=== PATIENT | female | born 1965 | race African-American/Black ===

== ENCOUNTER 2018-12-31 19:16 | Observation (INO) ==
[2018-12-31] MEDS ORDERED: FUROSEMIDE 100 MG/10 ML VIAL IV STA (19:31)
[2018-12-31] MEDS ORDERED: ONDANSETRON 4 MG/2 ML VIAL IV STA (19:31)
[2018-12-31] MEDS ORDERED: cefTRIAXone 1,000 MG in SODIUM CHLORIDE 0.9% 100 ML IV STA (19:31)
[2018-12-31] MEDS ORDERED: methylPREDNISolone SOD SUC 125 MG/2 ML VIAL IV STA (19:31)
[2018-12-31] MEDS ORDERED: ALBUTEROL 2.5 MG/3 ML NEB RESP TX SCH (20:00)
[2018-12-31 20:55] LABS: Basophils # 0.1 10*3/uL (0.0-0.2); Basophils % 0.5 % (0.0-0.8); Eosinophils % 0.4 % (0.00-10.9); Hematocrit 41.1 VOL% (35.7-47.0); Hemoglobin 12.7 GM/DL (12.0-16.0); Immature Granulocytes Absolute 0.11 #; Lymphocytes # 1.8 10*3/uL (1.4-4.0); Lymphocytes % 17.1 % (21.3-54.2); Mean Corpuscular HGB Conc 30.9 GM/DL (32-36); Mean Corpuscular Hemoglobin 28 PG (27-34); Mean Corpuscular Volume 90.9 FL (87-102); Mean Platelet Volume 10.2 FL (9.6-12.0); Monocytes # 0.5 10*3/uL (0.11-0.8); Monocytes % 4.7 % (1.7-12.7); Neutrophils % 76.3 % (38.7-73.9); Platelet Count 278 T/CUMM (130-400); Red Blood Count 4.52 MC/CUMM (3.8-5.5); Red Cell Distribution Width 15.6 % (9.3-17.3); White Blood Count 10.5 T/CUMM (4-12)
[2018-12-31 21:14] LABS: Alanine Aminotransferase 24 U/L (13-56); Albumin 3.9 G/DL (3.4-5.0); Alkaline Phosphatase 111 U/L (45-117); Aspartate Amino Transferase 21 U/L (0-37); Bilirubin,Total < 0.39 MG/DL (0.2-1.0); Blood Urea Nitrogen 13 MG/DL (7-18); Calcium 8.8 MG/DL (8.5-10.1); Glucose 111 MG/DL (74-106); Osmolality,Calculated 281.3 MOS/KG (273-304); Potassium 4.3 MMOL/L (3.5-5.1); Sodium 141 MMOL/L (136-145); Total Protein 7.7 G/DL (6.4-8.3)
[2018-12-31 21:18] LABS: INR 0.9; PT Patient Result 10.1 SECS
[2018-12-31 21:37] LABS: Apearance,Urine CLEAR (Clear); Bilirubin,Urine Negative (Negative); Blood, Urine Small mg/dL (Negative); Glucose,Urine (UA) Negative (Negative); Ketones,Urine Negative (Negative); Mucus,Urine Occasional /LPF (Occasional); Nitrite,Urine Negative (Negative); Protein,Urine Negative; RBC,Urine 1 /HPF (0-4); Squamous Epithelial Cell,Urine Occasional /HPF (0-10); Urine Color Straw (Yellow); Urine Specific Gravity 1.008 (1.001-1.035); Urine Urobilinogen < 2.0 EU/DL (0.2-1.0); WBC,Urine <1 /HPF (0-6)
[2018-12-31 21:41] LABS: Barbiturates Screen,Urine Negative (Negative); Benzodiazepines Screen,Urine Negative (Negative); Cannabinoid Screen,Urine Negative (Negative); Opiate Screen,Urine Negative (Negative); Phencyclidine Screen,Urine Negative (Negative)
[2018-12-31 21:46] LABS: ABG Base Excess -5.5 MMOL/L (-2.5-2.5); ABG HCO3 19.8 MMOL/L (20-26); ABG Oxygen Saturation 92.1 % (95-100); ABG PCO2 36.9 MM HG (35-48); ABG PH 7.336 (7.35-7.45); ABG PO2 70.2 MM HG (80-95); ABG TCO2 17.4 MMOL/L (23-27); Allen Test Positive; Pt O2 Delivery Device Room Air
[2018-12-31] MEDS ORDERED: diphenhydrAMINE CAP 25 MG CAPSULE PO PRN (21:53)
[2018-12-31] MEDS ORDERED: ACETAMINOPHEN 325 MG TABLET PO PRN (21:53)
[2018-12-31] MEDS ORDERED: MORPHINE 4 MG/1 ML VIAL IV PRN (21:53)
[2018-12-31] MEDS ORDERED: BISACODYL 5 MG TABLET PO PRN (21:53)
[2018-12-31] MEDS ORDERED: ONDANSETRON 4 MG/2 ML VIAL IV PRN (21:53)
[2018-12-31] MEDS ORDERED: guaiFENesin/DM ER 600-30 MG TABLET PO PRN (21:53)
[2018-12-31] MEDS ORDERED: ALBUTEROL 2.5 MG/3 ML NEB RESP TX PRN (21:53)
[2018-12-31] MEDS ORDERED: ZALEPLON 5 MG CAPSULE PO PRN (21:53)
[2018-12-31] MEDS ORDERED: NICOTINE 21 MG/24 HR PATCH TRANSDERM PRN (21:53)
[2019-01-01] MEDS: ALBUTEROL/IPRATROPIUM 3 ML NEB RESP TX SCH ×3 (00:16→13:02)
[2019-01-01 02:31] LABS: Basophils # 0.1 10*3/uL (0.0-0.2); Basophils % 0.5 % (0.0-0.8); Hematocrit 39.1 VOL% (35.7-47.0); Immature Granulocytes % 1.6 %; Immature Granulocytes Absolute 0.17 #; Lymphocytes # 0.4 10*3/uL (1.4-4.0); Lymphocytes % 3.8 % (21.3-54.2); Mean Corpuscular HGB Conc 30.7 GM/DL (32-36); Mean Corpuscular Hemoglobin 28 PG (27-34); Mean Corpuscular Volume 89.9 FL (87-102); Mean Platelet Volume 10.6 FL (9.6-12.0); Monocytes # 0.1 10*3/uL (0.11-0.8); Monocytes % 0.7 % (1.7-12.7); Neutrophils # 10.1 10*3/uL (1.4-7.4); Neutrophils % 93.4 % (38.7-73.9); Platelet Count 277 T/CUMM (130-400); Red Blood Count 4.35 MC/CUMM (3.8-5.5); Red Cell Distribution Width 15.4 % (9.3-17.3); White Blood Count 10.8 T/CUMM (4-12)
[2019-01-01 04:49] LABS: Band Neutrophils 2 % (0-10); Lymphocytes 5 % (20-55); Segmented Neutrophils 92 % (50-85); Total Cells Counted 100
[2019-01-01 04:50] LABS: Anisocytosis 1+
[2019-01-01 04:51] LABS: Platelet Estimate Adequate
[2019-01-01] MEDS ORDERED: PANTOPRAZOLE 40 MG TABLET PO SCH (09:00)
[2019-01-01] MEDS ORDERED: methylPREDNISolone SOD SUC 40 MG/1 ML VIAL IV SCH (09:00)
[2019-01-01 12:49] VITALS: BP 149/86
[2019-01-01] MEDS ORDERED: BENZONATATE 100 MG CAPSULE PO PRN (13:06)
[2019-01-01] MEDS ORDERED: buPROPion SR 100 MG TABLET PO SCH (21:00)
[2019-01-01] MEDS ORDERED: cefTRIAXone 1,000 MG in SYRINGE 1 EACH IV SCH (21:00)
[2019-01-02] MEDS ORDERED: NICOTINE 21 MG/24 HR PATCH TRANSDERM SCH (09:00)
== END 2019-01-01 14:43 | disposition home or self-care (01) ==
LOC: EDBD → EDUNIT# → N.ED 19:16 → N.EDINP 19:16 → N.4E 01-01 00:10
PROVIDERS: ADMIT Hospitalist; ATTEND Hospitalist

== ENCOUNTER 2020-11-20 14:12 | Observation (INO) ==
[2020-11-20] MEDS ORDERED: ALBUTEROL 2.5 MG/3 ML NEB RESP TX STA (14:31)
[2020-11-20] MEDS ORDERED: methylPREDNISolone SOD SUC 125 MG/2 ML VIAL IV STA (14:31)
[2020-11-20 15:16] LABS: Basophils # 0.1 10*3/uL (0.0-0.2); Basophils % 0.8 % (0.0-0.8); Eosinophils # 0.4 10*3/uL (0.0-0.87); Eosinophils % 6.3 % (0.00-10.9); Hematocrit 38.6 VOL% (35.7-47.0); Hemoglobin 12.2 GM/DL (12.0-16.0); Immature Granulocytes % 0.6 %; Immature Granulocytes Absolute 0.04 #; Lymphocytes # 1.5 10*3/uL (1.4-4.0); Lymphocytes % 24.1 % (21.3-54.2); Mean Corpuscular HGB Conc 31.6 GM/DL (32-36); Mean Corpuscular Volume 88.9 FL (87-102); Mean Platelet Volume 10.9 FL (9.6-12.0); Monocytes % 8.3 % (1.7-12.7); Neutrophils % 59.9 % (38.7-73.9); Platelet Count 194 T/CUMM (130-400); Red Blood Count 4.34 MC/CUMM (3.8-5.5); Red Cell Distribution Width 15.3 % (9.3-17.3); White Blood Count 6.3 T/CUMM (4-12)
[2020-11-20 15:32] LABS: Calcium 9.1 MG/DL (8.5-10.1); Osmolality,Calculated 274.5 MOS/KG (273-304); Potassium 3.4 MMOL/L (3.5-5.1)
[2020-11-20 16:06] LABS: ABG Base Excess 1.4 MMOL/L (-2.5-2.5); ABG HCO3 25.6 MMOL/L (20-26); ABG Oxygen Saturation 93.6 % (95-100); ABG PCO2 39.5 MM HG (35-48); ABG PH 7.423 (7.35-7.45); ABG PO2 68.8 MM HG (80-95); ABG TCO2 22.7 MMOL/L (23-27)
[2020-11-20] MEDS ORDERED: GLUCAGON 1 MG VIAL IM PRN (16:53)
[2020-11-20] MEDS ORDERED: hydrALAZINE 20 MG/1 ML VIAL IV PRN (16:53)
[2020-11-20] MEDS ORDERED: ACETAMINOPHEN 325 MG TABLET PO PRN (16:53)
[2020-11-20] MEDS ORDERED: ONDANSETRON 4 MG/2 ML VIAL IV PRN (16:53)
[2020-11-20] MEDS ORDERED: DEXTROSE 50% 25 GM/50 ML VIAL IV PRN (16:53)
[2020-11-20] MEDS ORDERED: traMADol 50 MG TABLET PO PRN (16:55)
[2020-11-20] MEDS ORDERED: POTASSIUM CHLORIDE 20 MEQ TABLET PO ONE (17:09)
[2020-11-20 17:27] LABS: Risk Ratio 2.2; Thyroid Stimulating Hormone 0.737 uIU/ml (0.358-3.74); VLDL CHOLESTEROL 24.4 MG/DL
[2020-11-20] MEDS ORDERED: ENOXAPARIN 40 MG/0.4 ML SYRINGE SUBCUT SCH (18:00)
[2020-11-20] MEDS: ALBUTEROL 2.5 MG/3 ML NEB RESP TX SCH (19:49)
[2020-11-20] MEDS ORDERED: ROSUVASTATIN 20 MG TABLET PO SCH (21:00)
[2020-11-20] MEDS ORDERED: QUEtiapine 25 MG TABLET PO SCH (21:00)
[2020-11-20] MEDS: INSULIN LISPRO 100 UNIT/ML SUBCUT SCH (21:03)
[2020-11-20] MEDS: FLUTICASONE/SALMETEROL 100-50 DISKUS 14 DOSE INH SCH (21:03)
[2020-11-20] MEDS: FLUoxetine 20 MG CAPSULE PO SCH (21:04)
[2020-11-21] MEDS: ALBUTEROL 2.5 MG/3 ML NEB RESP TX SCH ×3 (00:30→13:42)
[2020-11-21 06:52] LABS: Basophils % 0.1 % (0.0-0.8); Hematocrit 37.9 VOL% (35.7-47.0); Hemoglobin 12.4 GM/DL (12.0-16.0); Immature Granulocytes % 1.5 %; Immature Granulocytes Absolute 0.11 #; Lymphocytes # 0.8 10*3/uL (1.4-4.0); Lymphocytes % 10.9 % (21.3-54.2); Mean Corpuscular HGB Conc 32.7 GM/DL (32-36); Mean Corpuscular Volume 87.7 FL (87-102); Mean Platelet Volume 11.4 FL (9.6-12.0); Monocytes % 1.8 % (1.7-12.7); Neutrophils % 85.7 % (38.7-73.9); Platelet Count 188 T/CUMM (130-400); Red Blood Count 4.32 MC/CUMM (3.8-5.5); Red Cell Distribution Width 15.3 % (9.3-17.3); White Blood Count 7.3 T/CUMM (4-12)
[2020-11-21] MEDS ORDERED: LEVOTHYROXINE 75 MCG TABLET PO SCH (07:00)
[2020-11-21 07:17] LABS: Calcium 9.4 MG/DL (8.5-10.1); Osmolality,Calculated 280.7 MOS/KG (273-304); Potassium 4.3 MMOL/L (3.5-5.1)
[2020-11-21] MEDS ORDERED: MAGNESIUM SULF RIDER 2 GM in PREMIX 1 EACH IV PRN (08:01)
[2020-11-21] MEDS ORDERED: MAGNESIUM SULF RIDER 4 GM in PREMIX 1 EACH IV PRN (08:01)
[2020-11-21] MEDS ORDERED: metFORMIN 500 MG TABLET PO SCH (09:00)
[2020-11-21] MEDS ORDERED: LISINOPRIL/HCTZ 20-12.5 MG TABLET PO SCH (09:00)
[2020-11-21] MEDS ORDERED: INFLUENZA VIRUS VACCINE 0.5 ML SYRINGE IM ONE (09:00)
[2020-11-21] MEDS ORDERED: PNEUMOCOCCAL VACCINE (23 VALENT) 0.5 ML VIAL IM ONE (09:00)
[2020-11-21] MEDS ORDERED: amLODIPine 10 MG TABLET PO SCH (09:00)
[2020-11-21] MEDS ORDERED: methylPREDNISolone SOD SUC 40 MG/1 ML VIAL IV SCH (09:00)
[2020-11-21] MEDS: FLUoxetine 20 MG CAPSULE PO SCH (09:49)
[2020-11-21] MEDS: FLUTICASONE/SALMETEROL 100-50 DISKUS 14 DOSE INH SCH (11:58)
[2020-11-21] MEDS: INSULIN LISPRO 100 UNIT/ML SUBCUT SCH ×2 (11:58)
[2020-11-21 12:45] VITALS: BP 128/91
== END 2020-11-21 14:00 | disposition home or self-care (01) ==
LOC: EDUNIT# → EDBD → N.ED 14:12 → N.EDINP 14:12 → N.3E 18:05
PROVIDERS: ADMIT Phlebology; ATTEND Phlebology

== ENCOUNTER 2021-04-22 13:23 | Inpatient (IN) ==
[2021-04-22] MEDS ORDERED: SODIUM CHLORIDE 0.9% 1,000 ML IV STA ×2 (13:59→15:03)
[2021-04-22 14:52] LABS: Basophils % 0.7 % (0.0-0.8); Hematocrit 45.8 VOL% (35.7-47.0); Hemoglobin 14.7 GM/DL (12.0-16.0); Immature Granulocytes % 0.4 %; Immature Granulocytes Absolute 0.01 #; Lymphocytes # 0.7 10*3/uL (1.4-4.0); Lymphocytes % 25.2 % (21.3-54.2); Mean Corpuscular HGB Conc 32.1 GM/DL (32-36); Mean Corpuscular Volume 87.2 FL (87-102); Mean Platelet Volume 12.2 FL (9.6-12.0); Monocytes % 10.7 % (1.7-12.7); Platelet Count 124 T/CUMM (130-400); Red Blood Count 5.25 MC/CUMM (3.8-5.5); Red Cell Distribution Width 16.6 % (9.3-17.3); White Blood Count 2.7 T/CUMM (4-12)
[2021-04-22 15:08] LABS: Alanine Aminotransferase 96 U/L (13-56); Albumin 3.5 G/DL (3.4-5.0); Alkaline Phosphatase 96 U/L (45-117); Aspartate Amino Transferase 146 U/L (0-37); Bilirubin,Total < 0.39 MG/DL (0.20-1.00); Blood Urea Nitrogen 45 MG/DL (7-18); Calcium 8.6 MG/DL (8.5-10.1); Carbon Dioxide 20 MMOL/L (21-32); Estimated Glom Filtration Rate 20 ML/MIN; Glucose 134 MG/DL (74-106); Osmolality,Calculated 273.8 MOS/KG (273-304); Potassium 3.5 MMOL/L (3.5-5.1); Sodium 130 MMOL/L (136-145); Total Protein 7.2 G/DL (6.4-8.2)
[2021-04-22] MEDS ORDERED: cefTRIAXone 1,000 MG in SODIUM CHLORIDE 0.9% 100 ML IV STA (15:39)
[2021-04-22 16:21] LABS: Lymphocytes 25 % (20-55); Segmented Neutrophils 69 % (50-85); Total Cells Counted 100
[2021-04-22] MEDS ORDERED: GLUCAGON 1 MG VIAL IM PRN ×2 (16:28)
[2021-04-22] MEDS ORDERED: ONDANSETRON 4 MG/2 ML VIAL IV PRN (16:28)
[2021-04-22] MEDS ORDERED: DEXTROSE 50% 25 GM/50 ML VIAL IV PRN (16:28)
[2021-04-22] MEDS: INSULIN LISPRO 100 UNIT/ML SUBCUT SCH ×2 (16:30→21:55)
[2021-04-22] MEDS ORDERED: AZITHROMYCIN INJ 500 MG in SODIUM CHLORIDE 0.9% 250 ML IV ONE ×2 (16:32→19:00)
[2021-04-22] MEDS ORDERED: NICOTINE 7 MG/24 HR PATCH TRANSDERM PRN (16:39)
[2021-04-22] MEDS ORDERED: NOREPINEPHRINE 4 MG/4 ML VIAL IV ONE (17:56)
[2021-04-22] MEDS: NOREPINEPHRINE 8 MG in SODIUM CHLORIDE 0.9% 242 ML IV PRN (18:00)
[2021-04-22] MEDS: HEPARIN 5,000 UNIT/1 ML VIAL SUBCUT SCH (18:36)
[2021-04-22] MEDS: SODIUM CHLORIDE 0.9% 1,000 ML IV SCH (19:00)
[2021-04-22 19:21] LABS: ABG Base Excess -6.8 MMOL/L (-2.5-2.5); ABG Oxygen Saturation 96.6 % (95-100); ABG PCO2 29.7 MM HG (35-48); ABG PH 7.371 (7.35-7.45); ABG PO2 91.1 MM HG (80-95); ABG TCO2 14.8 MMOL/L (23-27)
[2021-04-22] MEDS ORDERED: ALBUMIN 25% 12.5 GM/50 ML VIAL IV ONE (20:10)
[2021-04-22] MEDS ORDERED: SODIUM BICARBONATE 50 MEQ/50 ML VIAL IV STA (20:10)
[2021-04-22 20:20] LABS: Bilirubin,Urine Negative (Negative); Blood, Urine Small mg/dL (Negative); Glucose,Urine (UA) Negative (Negative); Hyaline Casts,Urine 29 /LPF (0-3); Ketones,Urine 5 mg/dL (Negative); Mucus,Urine Few /LPF (Occasional); Nitrite,Urine Negative (Negative); Protein,Urine 30 MG/DL; RBC,Urine 2 /HPF (0-4); Squamous Epithelial Cell,Urine Occasional /HPF (0-10); Urine Appearance CLOUDY (Clear); Urine Color Yellow (Yellow); Urine Specific Gravity 1.013 (1.001-1.035); Urine Urobilinogen < 2.0 EU/DL (0.2-1.0)
[2021-04-22] MEDS: HYDROCORTISONE 100 MG VIAL IV SCH (20:41)
[2021-04-22] MEDS: FAMOTIDINE 20 MG TABLET PO SCH (21:40)
[2021-04-22] MEDS: ASCORBIC ACID 500 MG TABLET PO SCH (21:40)
[2021-04-23] MEDS: NOREPINEPHRINE 8 MG in SODIUM CHLORIDE 0.9% 242 ML IV PRN ×2 (01:35→08:20)
[2021-04-23] MEDS: SODIUM CHLORIDE 0.9% 1,000 ML IV SCH ×4 (03:20→23:55)
[2021-04-23] MEDS: HYDROCORTISONE 100 MG VIAL IV SCH ×4 (03:30→21:15)
[2021-04-23] MEDS: HEPARIN 5,000 UNIT/1 ML VIAL SUBCUT SCH ×3 (03:31→19:33)
[2021-04-23 04:40] LABS: Ferritin 1125.7 ng/ml (8-252)
[2021-04-23 04:47] LABS: Alanine Aminotransferase 75 U/L (13-56); Albumin 3.4 G/DL (3.4-5.0); Alkaline Phosphatase 91 U/L (45-117); Aspartate Amino Transferase 118 U/L (0-37); Bilirubin,Total < 0.39 MG/DL (0.20-1.00); Blood Urea Nitrogen 27 MG/DL (7-18); Calcium 8.4 MG/DL (8.5-10.1); Carbon Dioxide 16 MMOL/L (21-32); Estimated Glom Filtration Rate 59 ML/MIN; Glucose 259 MG/DL (74-106); Osmolality,Calculated 277.5 MOS/KG (273-304); Potassium 3.6 MMOL/L (3.5-5.1); Sodium 132 MMOL/L (136-145); Thyroid Stimulating Hormone 0.252 uIU/ml (0.358-3.74); Total Protein 7.3 G/DL (6.4-8.2)
[2021-04-23] MEDS ORDERED: NOREPINEPHRINE 4 MG/4 ML VIAL IV ONE (08:15)
[2021-04-23] MEDS: INSULIN LISPRO 100 UNIT/ML SUBCUT SCH ×4 (08:33→23:23)
[2021-04-23] MEDS: FAMOTIDINE 20 MG TABLET PO SCH ×2 (09:00→21:15)
[2021-04-23] MEDS: IVERMECTIN 3 MG TABLET PO SCH (09:00)
[2021-04-23] MEDS: AZITHROMYCIN 250 MG TABLET PO SCH (09:00)
[2021-04-23] MEDS: CHOLECALCIFEROL 1,000 UNIT TABLET PO SCH (09:00)
[2021-04-23] MEDS: ZINC GLUCONATE 50 MG TABLET PO SCH (09:00)
[2021-04-23] MEDS: ASCORBIC ACID 500 MG TABLET PO SCH ×2 (09:00→21:15)
[2021-04-23] MEDS: CETIRIZINE 10 MG TABLET PO SCH (09:00)
[2021-04-23 09:19] LABS: Basophils % 0.9 % (0.0-0.8); Hematocrit 42.7 VOL% (35.7-47.0); Hemoglobin 13.8 GM/DL (12.0-16.0); Immature Granulocytes % 0.3 %; Immature Granulocytes Absolute 0.01 #; Lymphocytes # 0.7 10*3/uL (1.4-4.0); Lymphocytes % 19.8 % (21.3-54.2); Mean Corpuscular HGB Conc 32.3 GM/DL (32-36); Mean Corpuscular Volume 86.4 FL (87-102); Mean Platelet Volume 12.3 FL (9.6-12.0); Platelet Count 130 T/CUMM (130-400); Red Blood Count 4.94 MC/CUMM (3.8-5.5); Red Cell Distribution Width 16.3 % (9.3-17.3); White Blood Count 3.4 T/CUMM (4-12)
[2021-04-23 09:40] LABS: Atypical Lymphocytes Few; Band Neutrophils 2 % (0-10); Hypochromasia 1+; Lymphocytes 20 % (20-55); Microcytosis 1+; Segmented Neutrophils 72 % (50-85); Total Cells Counted 100
[2021-04-23 09:41] LABS: Platelet Estimate Adequate
[2021-04-23] MEDS: amLODIPine 10 MG TABLET PO SCH (11:39)
[2021-04-23] MEDS: ALBUTEROL INHALER 18 GM INH SCH ×2 (19:22→19:36)
[2021-04-23] MEDS: guaiFENesin/CODEINE 5 ML LIQUID PO PRN (23:50)
[2021-04-24] MEDS: HYDROCORTISONE 100 MG VIAL IV SCH ×3 (03:40→20:45)
[2021-04-24] MEDS: HEPARIN 5,000 UNIT/1 ML VIAL SUBCUT SCH ×3 (03:40→16:46)
[2021-04-24] MEDS: ALBUTEROL INHALER 18 GM INH SCH ×4 (03:40→20:45)
[2021-04-24 05:20] LABS: Ferritin 1001.6 ng/ml (8-252)
[2021-04-24 05:57] LABS: Hepatitis B Core IgM Quant 0.14 Index; Hepatitis B Surface Ag Quant < 0.10 Index; Hepatitis B Surface Ag Result Non-Reactive (NonReactive); Hepatitis C Virus Ab Quant 0.07 Index; Hepatitis C Virus Ab Result Non-Reactive (NonReactive)
[2021-04-24] MEDS: LEVOTHYROXINE 75 MCG TABLET PO SCH (06:40)
[2021-04-24 07:42] LABS: Basophils % 0.2 % (0.0-0.8); Hematocrit 38.9 VOL% (35.7-47.0); Hemoglobin 12.6 GM/DL (12.0-16.0); Immature Granulocytes % 0.2 %; Immature Granulocytes Absolute 0.01 #; Lymphocytes % 22.3 % (21.3-54.2); Mean Corpuscular HGB Conc 32.4 GM/DL (32-36); Mean Corpuscular Volume 86.6 FL (87-102); Monocytes % 8.1 % (1.7-12.7); Neutrophils % 69.2 % (38.7-73.9); Platelet Count 103 T/CUMM (130-400); Red Blood Count 4.49 MC/CUMM (3.8-5.5); Red Cell Distribution Width 16.6 % (9.3-17.3); White Blood Count 4.3 T/CUMM (4-12)
[2021-04-24 07:55] LABS: Calcium 8.3 MG/DL (8.5-10.1); Osmolality,Calculated 278.7 MOS/KG (273-304); Potassium 2.9 MMOL/L (3.5-5.1)
[2021-04-24 08:03] LABS: Atypical Lymphocytes Few; Band Neutrophils 5 % (0-10); Lymphocytes 19 % (20-55); Segmented Neutrophils 68 % (50-85); Total Cells Counted 100
[2021-04-24 08:04] LABS: Hypochromasia 1+; Microcytosis 1+; Platelet Estimate Decreased
[2021-04-24] MEDS: SODIUM CHLORIDE 0.9% 1,000 ML IV SCH (08:33)
[2021-04-24] MEDS: INSULIN LISPRO 100 UNIT/ML SUBCUT SCH ×4 (09:30→23:15)
[2021-04-24] MEDS: IVERMECTIN 3 MG TABLET PO SCH (09:31)
[2021-04-24] MEDS: ZINC GLUCONATE 50 MG TABLET PO SCH (09:31)
[2021-04-24] MEDS: AZITHROMYCIN 250 MG TABLET PO SCH (09:31)
[2021-04-24] MEDS: amLODIPine 10 MG TABLET PO SCH (09:31)
[2021-04-24] MEDS: CHOLECALCIFEROL 1,000 UNIT TABLET PO SCH (09:31)
[2021-04-24] MEDS: ASCORBIC ACID 500 MG TABLET PO SCH ×2 (09:32→20:45)
[2021-04-24] MEDS: FAMOTIDINE 20 MG TABLET PO SCH ×2 (09:32→20:45)
[2021-04-24] MEDS: CETIRIZINE 10 MG TABLET PO SCH (09:32)
[2021-04-24] MEDS ORDERED: POTASSIUM CHLORIDE 20 MEQ TABLET PO ONE (12:42)
[2021-04-24] MEDS ORDERED: SODIUM CHLORIDE 0.9% 1,000 ML IV SCH (13:00)
[2021-04-24] MEDS: FLUTICASONE/SALMETEROL 100-50 DISKUS 14 DOSE INH SCH ×2 (16:46→20:45)
[2021-04-24] MEDS ORDERED: HYDROCORTISONE 100 MG VIAL IV SCH (18:00)
[2021-04-24 19:08] LABS: Calcium 8.3 MG/DL (8.5-10.1); Osmolality,Calculated 283.7 MOS/KG (273-304); Potassium 3.1 MMOL/L (3.5-5.1)
[2021-04-24] MEDS: guaiFENesin/CODEINE 5 ML LIQUID PO PRN (22:15)
[2021-04-25] MEDS: HEPARIN 5,000 UNIT/1 ML VIAL SUBCUT SCH ×3 (01:55→16:48)
[2021-04-25] MEDS: ALBUTEROL INHALER 18 GM INH SCH ×4 (01:55→22:26)
[2021-04-25 05:37] LABS: Basophils % 0.2 % (0.0-0.8); Hematocrit 38.6 VOL% (35.7-47.0); Hemoglobin 12.6 GM/DL (12.0-16.0); Immature Granulocytes % 0.9 %; Immature Granulocytes Absolute 0.04 #; Lymphocytes # 0.8 10*3/uL (1.4-4.0); Lymphocytes % 17.5 % (21.3-54.2); Mean Corpuscular HGB Conc 32.6 GM/DL (32-36); Mean Corpuscular Volume 87.3 FL (87-102); Mean Platelet Volume 12.6 FL (9.6-12.0); Monocytes % 10.6 % (1.7-12.7); Neutrophils % 70.8 % (38.7-73.9); Platelet Count 111 T/CUMM (130-400); Red Blood Count 4.42 MC/CUMM (3.8-5.5); Red Cell Distribution Width 16.8 % (9.3-17.3); White Blood Count 4.6 T/CUMM (4-12)
[2021-04-25 06:01] LABS: Calcium 8.9 MG/DL (8.5-10.1); Hypochromasia 1+; Osmolality,Calculated 278.8 MOS/KG (273-304)
[2021-04-25 06:02] LABS: Microcytosis 1+; Platelet Estimate Decreased
[2021-04-25] MEDS: LEVOTHYROXINE 75 MCG TABLET PO SCH (06:05)
[2021-04-25 06:07] LABS: Ferritin 921.5 ng/ml (8-252)
[2021-04-25] MEDS: FAMOTIDINE 20 MG TABLET PO SCH ×2 (09:39→22:26)
[2021-04-25] MEDS: AZITHROMYCIN 250 MG TABLET PO SCH (09:39)
[2021-04-25] MEDS: ZINC GLUCONATE 50 MG TABLET PO SCH (09:40)
[2021-04-25] MEDS: amLODIPine 10 MG TABLET PO SCH (09:40)
[2021-04-25] MEDS: ASCORBIC ACID 500 MG TABLET PO SCH ×2 (09:40→22:26)
[2021-04-25] MEDS: IVERMECTIN 3 MG TABLET PO SCH (09:40)
[2021-04-25] MEDS: INSULIN LISPRO 100 UNIT/ML SUBCUT SCH ×4 (09:40→22:27)
[2021-04-25] MEDS: CETIRIZINE 10 MG TABLET PO SCH (09:40)
[2021-04-25] MEDS: HYDROCORTISONE 100 MG VIAL IV SCH ×2 (09:41→22:27)
[2021-04-25] MEDS: FLUTICASONE/SALMETEROL 100-50 DISKUS 14 DOSE INH SCH ×2 (09:41→22:25)
[2021-04-25] MEDS: CHOLECALCIFEROL 1,000 UNIT TABLET PO SCH (11:20)
[2021-04-25] MEDS: POTASSIUM CHLORIDE 20 MEQ TABLET PO PRN (11:20)
[2021-04-26] MEDS: HEPARIN 5,000 UNIT/1 ML VIAL SUBCUT SCH ×3 (00:28→17:44)
[2021-04-26] MEDS: ALBUTEROL INHALER 18 GM INH SCH ×4 (01:49→19:40)
[2021-04-26 05:02] LABS: Basophils % 0.7 % (0.0-0.8); Eosinophils % 0.3 % (0.00-10.9); Hematocrit 39.6 VOL% (35.7-47.0); Immature Granulocytes % 4.8 %; Immature Granulocytes Absolute 0.29 #; Lymphocytes % 16.2 % (21.3-54.2); Mean Corpuscular HGB Conc 32.8 GM/DL (32-36); Mean Corpuscular Volume 86.8 FL (87-102); Mean Platelet Volume 12.7 FL (9.6-12.0); Monocytes % 9.2 % (1.7-12.7); Neutrophils % 68.8 % (38.7-73.9); Platelet Count 144 T/CUMM (130-400); Red Blood Count 4.56 MC/CUMM (3.8-5.5); Red Cell Distribution Width 16.9 % (9.3-17.3); White Blood Count 6.1 T/CUMM (4-12)
[2021-04-26 05:22] LABS: Albumin 2.7 G/DL (3.4-5.0); Bilirubin,Total 0.4 MG/DL (0.20-1.00); Calcium 9.1 MG/DL (8.5-10.1); Osmolality,Calculated 276.7 MOS/KG (273-304); Potassium 2.9 MMOL/L (3.5-5.1); Total Protein 6.8 G/DL (6.4-8.2)
[2021-04-26 05:24] LABS: Band Neutrophils 1 % (0-10); Hypochromasia Slight; Lymphocytes 20 % (20-55); Microcytosis Slight; Platelet Estimate Adequate; Segmented Neutrophils 74 % (50-85); Total Cells Counted 100
[2021-04-26 05:31] LABS: Ferritin 925.5 ng/ml (8-252)
[2021-04-26] MEDS: LEVOTHYROXINE 75 MCG TABLET PO SCH (05:40)
[2021-04-26] MEDS: HYDROCORTISONE 100 MG VIAL IV SCH (08:42)
[2021-04-26] MEDS: CHOLECALCIFEROL 1,000 UNIT TABLET PO SCH (08:42)
[2021-04-26] MEDS: ZINC GLUCONATE 50 MG TABLET PO SCH (08:43)
[2021-04-26] MEDS: FAMOTIDINE 20 MG TABLET PO SCH ×2 (08:43→21:19)
[2021-04-26] MEDS: CETIRIZINE 10 MG TABLET PO SCH (08:43)
[2021-04-26] MEDS: amLODIPine 10 MG TABLET PO SCH (08:43)
[2021-04-26] MEDS: IVERMECTIN 3 MG TABLET PO SCH (08:43)
[2021-04-26] MEDS: AZITHROMYCIN 250 MG TABLET PO SCH (08:43)
[2021-04-26] MEDS: ASCORBIC ACID 500 MG TABLET PO SCH ×2 (08:43→21:19)
[2021-04-26] MEDS: POTASSIUM CHLORIDE 20 MEQ TABLET PO PRN ×2 (08:43→08:44)
[2021-04-26] MEDS: FLUTICASONE/SALMETEROL 100-50 DISKUS 14 DOSE INH SCH ×2 (10:26→21:42)
[2021-04-26] MEDS: INSULIN LISPRO 100 UNIT/ML SUBCUT SCH ×4 (10:30→21:32)
[2021-04-26 10:45] LABS: ABG HCO3 32.3 MMOL/L (20-26); ABG Oxygen Saturation 80.9 % (95-100); ABG PH 7.528 (7.35-7.45); ABG PO2 44.8 MM HG (80-95); ABG TCO2 28.2 MMOL/L (23-27)
[2021-04-26] MEDS ORDERED: HYDROCORTISONE 100 MG VIAL IV SCH (12:00)
[2021-04-26] MEDS ORDERED: FUROSEMIDE 40 MG/4 ML VIAL IV ONE (15:12)
[2021-04-26] MEDS: methylPREDNISolone SOD SUC 40 MG/1 ML VIAL IV SCH ×2 (15:28→21:19)
[2021-04-26] MEDS ORDERED: POTASSIUM CHLORIDE RIDER 20 MEQ/100 ML PREMIX IV PRN (17:17)
[2021-04-27] MEDS: HEPARIN 5,000 UNIT/1 ML VIAL SUBCUT SCH ×2 (01:18→10:59)
[2021-04-27] MEDS: ALBUTEROL INHALER 18 GM INH SCH ×3 (01:19→12:52)
[2021-04-27] MEDS: methylPREDNISolone SOD SUC 40 MG/1 ML VIAL IV SCH ×4 (04:11→22:22)
[2021-04-27 04:54] LABS: ABG Base Excess 8.6 MMOL/L (-2.5-2.5); ABG HCO3 32.2 MMOL/L (20-26); ABG PH 7.568 (7.35-7.45); ABG TCO2 26.8 MMOL/L (23-27)
[2021-04-27] MEDS: LEVOTHYROXINE 75 MCG TABLET PO SCH (07:05)
[2021-04-27 07:38] LABS: Basophils # 0.1 10*3/uL (0.0-0.2); Basophils % 0.7 % (0.0-0.8); Eosinophils % 0.4 % (0.00-10.9); Hematocrit 40.5 VOL% (35.7-47.0); Hemoglobin 12.8 GM/DL (12.0-16.0); Immature Granulocytes % 12.3 %; Lymphocytes # 1.5 10*3/uL (1.4-4.0); Lymphocytes % 20.6 % (21.3-54.2); Mean Corpuscular HGB Conc 31.6 GM/DL (32-36); Mean Corpuscular Volume 88.2 FL (87-102); Mean Platelet Volume 12.4 FL (9.6-12.0); Monocytes % 5.5 % (1.7-12.7); Neutrophils % 60.5 % (38.7-73.9); Platelet Count 220 T/CUMM (130-400); Red Blood Count 4.59 MC/CUMM (3.8-5.5); White Blood Count 7.3 T/CUMM (4-12)
[2021-04-27 07:59] LABS: Band Neutrophils 1 % (0-10); Hypochromasia 1+; Lymphocytes 14 % (20-55); Microcytosis 1+; Platelet Estimate Adequate; Segmented Neutrophils 78 % (50-85); Total Cells Counted 100
[2021-04-27 08:04] LABS: Albumin 2.3 G/DL (3.4-5.0); Bilirubin,Total 0.4 MG/DL (0.20-1.00); Calcium 8.8 MG/DL (8.5-10.1); Osmolality,Calculated 282.7 MOS/KG (273-304); Potassium 3.3 MMOL/L (3.5-5.1); Total Protein 6.8 G/DL (6.4-8.2)
[2021-04-27] MEDS: FLUTICASONE/SALMETEROL 100-50 DISKUS 14 DOSE INH SCH ×2 (09:15→10:56)
[2021-04-27] MEDS: POTASSIUM CHLORIDE RIDER 10 MEQ/100 ML PREMIX IV PRN ×4 (09:49→13:20)
[2021-04-27] MEDS: amLODIPine 10 MG TABLET PO SCH (10:56)
[2021-04-27] MEDS: NICOTINE 7 MG/24 HR PATCH TRANSDERM SCH (10:57)
[2021-04-27] MEDS: CHOLECALCIFEROL 1,000 UNIT TABLET PO SCH (10:57)
[2021-04-27] MEDS: FAMOTIDINE 20 MG TABLET PO SCH ×2 (10:57→21:20)
[2021-04-27] MEDS: ZINC GLUCONATE 50 MG TABLET PO SCH (10:57)
[2021-04-27] MEDS: ENOXAPARIN 60 MG/0.6 ML SYRINGE SUBCUT SCH ×2 (10:57→23:16)
[2021-04-27] MEDS: ASCORBIC ACID 500 MG TABLET PO SCH ×2 (10:58→21:20)
[2021-04-27] MEDS: CETIRIZINE 10 MG TABLET PO SCH (10:58)
[2021-04-27] MEDS: IVERMECTIN 3 MG TABLET PO SCH (10:58)
[2021-04-27] MEDS: INSULIN LISPRO 100 UNIT/ML SUBCUT SCH ×4 (10:59→21:20)
[2021-04-27] MEDS ORDERED: FUROSEMIDE 40 MG/4 ML VIAL IV ONE (15:23)
[2021-04-27] MEDS ORDERED: INSULIN GLARGINE 100 UNIT/ML SUBCUT SCH (21:00)
[2021-04-28] MEDS: ALBUTEROL INHALER 18 GM INH SCH ×5 (01:30→18:13)
[2021-04-28] MEDS: methylPREDNISolone SOD SUC 40 MG/1 ML VIAL IV SCH ×4 (02:54→20:30)
[2021-04-28 03:54] LABS: ABG Base Excess 7.6 MMOL/L (-2.5-2.5); ABG HCO3 30.3 MMOL/L (20-26); ABG PCO2 36.2 MM HG (35-48); ABG PH 7.541 (7.35-7.45); ABG TCO2 31.4 MMOL/L (23-27)
[2021-04-28 03:55] LABS: ABG Oxygen Saturation 90.8 % (95-100)
[2021-04-28 05:01] LABS: Basophils # 0.1 10*3/uL (0.0-0.2); Basophils % 0.9 % (0.0-0.8); Hematocrit 41.6 VOL% (35.7-47.0); Hemoglobin 13.2 GM/DL (12.0-16.0); Immature Granulocytes % 12.4 %; Immature Granulocytes Absolute 1.19 #; Lymphocytes # 1.2 10*3/uL (1.4-4.0); Lymphocytes % 12.3 % (21.3-54.2); Mean Corpuscular HGB Conc 31.7 GM/DL (32-36); Mean Corpuscular Volume 87.9 FL (87-102); Mean Platelet Volume 11.8 FL (9.6-12.0); Monocytes % 9.5 % (1.7-12.7); Neutrophils % 64.9 % (38.7-73.9); Platelet Count 298 T/CUMM (130-400); Red Blood Count 4.73 MC/CUMM (3.8-5.5); Red Cell Distribution Width 16.9 % (9.3-17.3); White Blood Count 9.6 T/CUMM (4-12)
[2021-04-28 05:23] LABS: Calcium 9.3 MG/DL (8.5-10.1); Osmolality,Calculated 291.4 MOS/KG (273-304)
[2021-04-28 05:31] LABS: Band Neutrophils 2 % (0-10); Eosinophils 1 % (0-10); Lymphocytes 8 % (20-55); Metamyelocytes 1 %; Myelocytes 1 %; Platelet Estimate Normal; Segmented Neutrophils 79 % (50-85); Total Cells Counted 100
[2021-04-28] MEDS: POTASSIUM CHLORIDE RIDER 10 MEQ/100 ML PREMIX IV PRN (06:42)
[2021-04-28] MEDS: LEVOTHYROXINE 75 MCG TABLET PO SCH (06:45)
[2021-04-28] MEDS: CHOLECALCIFEROL 1,000 UNIT TABLET PO SCH (08:46)
[2021-04-28] MEDS: CETIRIZINE 10 MG TABLET PO SCH (08:46)
[2021-04-28] MEDS: FAMOTIDINE 20 MG TABLET PO SCH ×2 (08:46→20:14)
[2021-04-28] MEDS: amLODIPine 10 MG TABLET PO SCH (08:46)
[2021-04-28] MEDS: ZINC GLUCONATE 50 MG TABLET PO SCH (08:46)
[2021-04-28] MEDS: ASCORBIC ACID 500 MG TABLET PO SCH ×2 (08:46→20:14)
[2021-04-28] MEDS: FLUTICASONE/SALMETEROL 100-50 DISKUS 14 DOSE INH SCH ×2 (08:46→20:38)
[2021-04-28] MEDS: INSULIN LISPRO 100 UNIT/ML SUBCUT SCH ×4 (09:38→20:15)
[2021-04-28] MEDS: NICOTINE 7 MG/24 HR PATCH TRANSDERM SCH (09:38)
[2021-04-28] MEDS: ENOXAPARIN 60 MG/0.6 ML SYRINGE SUBCUT SCH ×2 (09:39→22:20)
[2021-04-28] MEDS ORDERED: FUROSEMIDE 40 MG/4 ML VIAL IV ONE (10:55)
[2021-04-28] MEDS: POTASSIUM CHLORIDE 20 MEQ TABLET PO PRN (11:20)
[2021-04-28] MEDS: POTASSIUM CHLORIDE 20 MEQ TABLET PO SCH (12:52)
[2021-04-28] MEDS ORDERED: INSULIN GLARGINE 100 UNIT/ML SUBCUT SCH (21:00)
[2021-04-29] MEDS: ALBUTEROL INHALER 18 GM INH SCH ×4 (01:20→19:20)
[2021-04-29] MEDS: methylPREDNISolone SOD SUC 40 MG/1 ML VIAL IV SCH ×4 (02:58→21:50)
[2021-04-29 03:43] LABS: ABG Base Excess 8.2 MMOL/L (-2.5-2.5); ABG HCO3 31.8 MMOL/L (20-26); ABG Oxygen Saturation 88.5 % (95-100); ABG PH 7.518 (7.35-7.45); ABG PO2 55.8 MM HG (80-95)
[2021-04-29] MEDS: ACETAMINOPHEN 325 MG TABLET PO PRN ×2 (05:59→22:43)
[2021-04-29] MEDS: LEVOTHYROXINE 75 MCG TABLET PO SCH (06:01)
[2021-04-29 06:08] LABS: Basophils % 0.4 % (0.0-0.8); Hematocrit 40.7 VOL% (35.7-47.0); Hemoglobin 12.6 GM/DL (12.0-16.0); Immature Granulocytes % 13.7 %; Immature Granulocytes Absolute 1.45 #; Lymphocytes # 0.8 10*3/uL (1.4-4.0); Lymphocytes % 7.4 % (21.3-54.2); Mean Corpuscular Volume 89.8 FL (87-102); Mean Platelet Volume 11.8 FL (9.6-12.0); Monocytes % 9.8 % (1.7-12.7); Neutrophils % 68.7 % (38.7-73.9); Platelet Count 311 T/CUMM (130-400); Red Blood Count 4.53 MC/CUMM (3.8-5.5); Red Cell Distribution Width 16.7 % (9.3-17.3); White Blood Count 10.6 T/CUMM (4-12)
[2021-04-29 06:35] LABS: Band Neutrophils 6 % (0-10); Lymphocytes 10 % (20-55); Metamyelocytes 3 %; Myelocytes 1 %; Platelet Estimate Normal; Segmented Neutrophils 73 % (50-85); Smudge Cells Few; Total Cells Counted 100
[2021-04-29 06:36] LABS: Anisocytosis Slight
[2021-04-29 06:40] LABS: Albumin 2.5 G/DL (3.4-5.0); Bilirubin,Total 0.6 MG/DL (0.20-1.00); Calcium 9.1 MG/DL (8.5-10.1); Ferritin 492.8 ng/ml (8-252); Osmolality,Calculated 281.8 MOS/KG (273-304); Potassium 3.1 MMOL/L (3.5-5.1); Total Protein 6.5 G/DL (6.4-8.2)
[2021-04-29] MEDS: POTASSIUM CHLORIDE RIDER 10 MEQ/100 ML PREMIX IV PRN ×8 (06:59→21:45)
[2021-04-29] MEDS: FLUTICASONE/SALMETEROL 100-50 DISKUS 14 DOSE INH SCH ×2 (09:20→21:40)
[2021-04-29] MEDS: INSULIN LISPRO 100 UNIT/ML SUBCUT SCH ×4 (09:20→21:50)
[2021-04-29] MEDS: ENOXAPARIN 60 MG/0.6 ML SYRINGE SUBCUT SCH ×2 (09:56→21:56)
[2021-04-29] MEDS: CETIRIZINE 10 MG TABLET PO SCH (09:57)
[2021-04-29] MEDS: POTASSIUM CHLORIDE 20 MEQ TABLET PO SCH (09:57)
[2021-04-29] MEDS: ASCORBIC ACID 500 MG TABLET PO SCH ×2 (09:57→21:50)
[2021-04-29] MEDS: NICOTINE 7 MG/24 HR PATCH TRANSDERM SCH (09:57)
[2021-04-29] MEDS: ZINC GLUCONATE 50 MG TABLET PO SCH (09:57)
[2021-04-29] MEDS: amLODIPine 10 MG TABLET PO SCH (09:57)
[2021-04-29] MEDS: FAMOTIDINE 20 MG TABLET PO SCH ×2 (09:58→21:50)
[2021-04-29] MEDS: CHOLECALCIFEROL 1,000 UNIT TABLET PO SCH (09:58)
[2021-04-29] MEDS ORDERED: INSULIN LISPRO 100 UNIT/ML IV ONE (16:25)
[2021-04-29] MEDS ORDERED: INSULIN GLARGINE 100 UNIT/ML SUBCUT SCH (21:00)
[2021-04-30] MEDS: ALBUTEROL INHALER 18 GM INH SCH ×4 (00:25→21:19)
[2021-04-30] MEDS: methylPREDNISolone SOD SUC 40 MG/1 ML VIAL IV SCH ×4 (04:40→20:50)
[2021-04-30 05:06] LABS: Hematocrit 41.3 VOL% (35.7-47.0); Hemoglobin 12.8 GM/DL (12.0-16.0); Immature Granulocytes % 12.2 %; Immature Granulocytes Absolute 1.37 #; Lymphocytes # 0.6 10*3/uL (1.4-4.0); Lymphocytes % 5.3 % (21.3-54.2); Mean Platelet Volume 12.2 FL (9.6-12.0); Monocytes % 8.5 % (1.7-12.7); Platelet Count 271 T/CUMM (130-400); Red Blood Count 4.54 MC/CUMM (3.8-5.5); Red Cell Distribution Width 16.5 % (9.3-17.3); White Blood Count 11.2 T/CUMM (4-12)
[2021-04-30 05:20] LABS: ABG Base Excess 0.5 MMOL/L (-2.5-2.5); ABG HCO3 24.1 MMOL/L (20-26); ABG Oxygen Saturation 83.9 % (95-100); ABG PCO2 35.4 MM HG (35-48); ABG PH 7.451 (7.35-7.45); ABG PO2 51.1 MM HG (80-95); ABG TCO2 25.2 MMOL/L (23-27)
[2021-04-30 05:46] LABS: Calcium 9.4 MG/DL (8.5-10.1); Osmolality,Calculated 285.8 MOS/KG (273-304); Potassium 3.5 MMOL/L (3.5-5.1)
[2021-04-30] MEDS ORDERED: INSULIN GLARGINE 100 UNIT/ML SUBCUT ONE (07:08)
[2021-04-30] MEDS: LEVOTHYROXINE 75 MCG TABLET PO SCH (07:14)
[2021-04-30] MEDS: ASCORBIC ACID 500 MG TABLET PO SCH ×2 (08:00→21:21)
[2021-04-30] MEDS: POTASSIUM CHLORIDE 20 MEQ TABLET PO SCH (08:00)
[2021-04-30] MEDS: CHOLECALCIFEROL 1,000 UNIT TABLET PO SCH (08:00)
[2021-04-30] MEDS: INSULIN LISPRO 100 UNIT/ML SUBCUT SCH ×4 (08:00→21:20)
[2021-04-30] MEDS: FAMOTIDINE 20 MG TABLET PO SCH ×2 (08:00→21:21)
[2021-04-30] MEDS: NICOTINE 7 MG/24 HR PATCH TRANSDERM SCH (08:00)
[2021-04-30] MEDS: FLUTICASONE/SALMETEROL 100-50 DISKUS 14 DOSE INH SCH ×2 (08:00→21:19)
[2021-04-30] MEDS: amLODIPine 10 MG TABLET PO SCH (08:00)
[2021-04-30] MEDS: ZINC GLUCONATE 50 MG TABLET PO SCH (08:00)
[2021-04-30] MEDS: CETIRIZINE 10 MG TABLET PO SCH (08:00)
[2021-04-30 09:32] LABS: Band Neutrophils 2 % (0-10); Hypochromasia 1+; Lymphocytes 3 % (20-55); Metamyelocytes 2 %; Platelet Estimate Normal; Segmented Neutrophils 91 % (50-85); Total Cells Counted 100
[2021-04-30] MEDS: ENOXAPARIN 60 MG/0.6 ML SYRINGE SUBCUT SCH ×2 (09:35→21:31)
[2021-04-30] MEDS: INSULIN GLARGINE 100 UNIT/ML SUBCUT SCH (21:20)
[2021-05-01] MEDS: methylPREDNISolone SOD SUC 40 MG/1 ML VIAL IV SCH ×4 (02:45→21:20)
[2021-05-01] MEDS: ALBUTEROL INHALER 18 GM INH SCH ×4 (02:46→21:51)
[2021-05-01 06:10] LABS: Calcium 9.2 MG/DL (8.5-10.1); Ferritin 398.8 ng/ml (8-252); Osmolality,Calculated 280.8 MOS/KG (273-304)
[2021-05-01 06:46] LABS: Basophils # 0.1 10*3/uL (0.0-0.2); Basophils % 0.7 % (0.0-0.8); Hematocrit 43.7 VOL% (35.7-47.0); Hemoglobin 13.1 GM/DL (12.0-16.0); Immature Granulocytes % 10.7 %; Lymphocytes # 0.5 10*3/uL (1.4-4.0); Lymphocytes % 4.4 % (21.3-54.2); Mean Corpuscular Volume 93.4 FL (87-102); Mean Platelet Volume 12.6 FL (9.6-12.0); Monocytes % 6.3 % (1.7-12.7); Neutrophils % 77.9 % (38.7-73.9); Platelet Count 272 T/CUMM (130-400); Red Blood Count 4.68 MC/CUMM (3.8-5.5); Red Cell Distribution Width 17.2 % (9.3-17.3); White Blood Count 12.2 T/CUMM (4-12)
[2021-05-01] MEDS: INSULIN LISPRO 100 UNIT/ML SUBCUT SCH ×4 (07:34→21:52)
[2021-05-01] MEDS: LEVOTHYROXINE 75 MCG TABLET PO SCH (07:34)
[2021-05-01 08:12] LABS: ABG Base Excess -0.1 MMOL/L (-2.5-2.5); ABG HCO3 24.2 MMOL/L (20-26); ABG Oxygen Saturation 91.9 % (95-100); ABG PCO2 32.8 MM HG (35-48); ABG PH 7.455 (7.35-7.45); ABG PO2 64.1 MM HG (80-95); ABG TCO2 20.2 MMOL/L (23-27)
[2021-05-01] MEDS: ZINC GLUCONATE 50 MG TABLET PO SCH (09:38)
[2021-05-01] MEDS: guaiFENesin/CODEINE 5 ML LIQUID PO PRN (09:38)
[2021-05-01] MEDS: NICOTINE 7 MG/24 HR PATCH TRANSDERM SCH (09:38)
[2021-05-01] MEDS: POTASSIUM CHLORIDE 20 MEQ TABLET PO SCH (09:38)
[2021-05-01] MEDS: CETIRIZINE 10 MG TABLET PO SCH (09:39)
[2021-05-01] MEDS: FAMOTIDINE 20 MG TABLET PO SCH ×2 (09:39→21:15)
[2021-05-01] MEDS: ENOXAPARIN 60 MG/0.6 ML SYRINGE SUBCUT SCH ×2 (09:39→21:51)
[2021-05-01] MEDS: amLODIPine 10 MG TABLET PO SCH (09:39)
[2021-05-01] MEDS: ASCORBIC ACID 500 MG TABLET PO SCH ×2 (09:39→21:14)
[2021-05-01] MEDS: FLUTICASONE/SALMETEROL 100-50 DISKUS 14 DOSE INH SCH ×2 (09:39→21:51)
[2021-05-01 10:24] LABS: Band Neutrophils 1 % (0-10); Hypochromasia 1+; Lymphocytes 4 % (20-55); Metamyelocytes 5 %; Myelocytes 3 %; Platelet Estimate Normal; Polychromasia Slight; Segmented Neutrophils 83 % (50-85); Total Cells Counted 100
[2021-05-01] MEDS: CHOLECALCIFEROL 1,000 UNIT TABLET PO SCH (13:14)
[2021-05-01] MEDS: INSULIN GLARGINE 100 UNIT/ML SUBCUT SCH (21:18)
[2021-05-02] MEDS: ALBUTEROL INHALER 18 GM INH SCH ×4 (04:16→20:46)
[2021-05-02] MEDS: methylPREDNISolone SOD SUC 40 MG/1 ML VIAL IV SCH ×4 (05:30→20:46)
[2021-05-02 05:56] LABS: Albumin 2.4 G/DL (3.4-5.0); Bilirubin,Total 0.4 MG/DL (0.20-1.00); Calcium 9.4 MG/DL (8.5-10.1); Ferritin 464.4 ng/ml (8-252); Osmolality,Calculated 280.8 MOS/KG (273-304); Potassium 4.1 MMOL/L (3.5-5.1); Total Protein 6.7 G/DL (6.4-8.2)
[2021-05-02 06:37] LABS: Basophils # 0.1 10*3/uL (0.0-0.2); Basophils % 0.5 % (0.0-0.8); Hematocrit 42.1 VOL% (35.7-47.0); Hemoglobin 13.3 GM/DL (12.0-16.0); Immature Granulocytes % 9.6 %; Immature Granulocytes Absolute 1.03 #; Lymphocytes # 0.5 10*3/uL (1.4-4.0); Lymphocytes % 4.3 % (21.3-54.2); Mean Corpuscular HGB Conc 31.6 GM/DL (32-36); Mean Corpuscular Volume 89.8 FL (87-102); Monocytes % 4.1 % (1.7-12.7); Neutrophils % 81.5 % (38.7-73.9); Platelet Count 251 T/CUMM (130-400); Red Blood Count 4.69 MC/CUMM (3.8-5.5); Red Cell Distribution Width 16.8 % (9.3-17.3); White Blood Count 10.7 T/CUMM (4-12)
[2021-05-02 07:07] LABS: Eosinophils 1 % (0-10); Lymphocytes 4 % (20-55); Platelet Estimate Normal; Segmented Neutrophils 90 % (50-85); Total Cells Counted 100
[2021-05-02] MEDS: LEVOTHYROXINE 75 MCG TABLET PO SCH (07:27)
[2021-05-02] MEDS: CETIRIZINE 10 MG TABLET PO SCH (08:42)
[2021-05-02] MEDS: amLODIPine 10 MG TABLET PO SCH (08:42)
[2021-05-02] MEDS: ASCORBIC ACID 500 MG TABLET PO SCH ×2 (08:43→20:46)
[2021-05-02] MEDS: ZINC GLUCONATE 50 MG TABLET PO SCH (08:43)
[2021-05-02] MEDS: CHOLECALCIFEROL 1,000 UNIT TABLET PO SCH (08:43)
[2021-05-02] MEDS: NICOTINE 7 MG/24 HR PATCH TRANSDERM SCH (08:44)
[2021-05-02] MEDS: FAMOTIDINE 20 MG TABLET PO SCH ×2 (08:45→20:46)
[2021-05-02] MEDS: INSULIN LISPRO 100 UNIT/ML SUBCUT SCH ×4 (09:00→21:03)
[2021-05-02] MEDS: FLUTICASONE/SALMETEROL 100-50 DISKUS 14 DOSE INH SCH ×2 (09:30→20:46)
[2021-05-02] MEDS: ENOXAPARIN 60 MG/0.6 ML SYRINGE SUBCUT SCH ×2 (10:57→22:19)
[2021-05-02] MEDS: POTASSIUM CHLORIDE 20 MEQ TABLET PO SCH (12:15)
[2021-05-02] MEDS ORDERED: INSULIN GLARGINE 100 UNIT/ML SUBCUT SCH (21:00)
[2021-05-03] MEDS: ALBUTEROL INHALER 18 GM INH SCH ×4 (03:21→19:30)
[2021-05-03] MEDS: methylPREDNISolone SOD SUC 40 MG/1 ML VIAL IV SCH ×5 (03:21→22:39)
[2021-05-03 04:55] LABS: Basophils % 0.3 % (0.0-0.8); Hematocrit 39.5 VOL% (35.7-47.0); Hemoglobin 12.5 GM/DL (12.0-16.0); Immature Granulocytes % 6.6 %; Immature Granulocytes Absolute 0.76 #; Lymphocytes # 0.4 10*3/uL (1.4-4.0); Lymphocytes % 3.5 % (21.3-54.2); Mean Corpuscular HGB Conc 31.6 GM/DL (32-36); Mean Corpuscular Volume 90.2 FL (87-102); Mean Platelet Volume 12.2 FL (9.6-12.0); Neutrophils % 85.6 % (38.7-73.9); Platelet Count 228 T/CUMM (130-400); Red Blood Count 4.38 MC/CUMM (3.8-5.5); Red Cell Distribution Width 16.9 % (9.3-17.3); White Blood Count 11.6 T/CUMM (4-12)
[2021-05-03 05:17] LABS: Band Neutrophils 1 % (0-10); Lymphocytes 2 % (20-55); Microcytosis 1+; Platelet Estimate Adequate; Segmented Neutrophils 95 % (50-85); Total Cells Counted 100
[2021-05-03 05:18] LABS: Hypochromasia Slight
[2021-05-03 05:22] LABS: Calcium 9.1 MG/DL (8.5-10.1); Osmolality,Calculated 284.7 MOS/KG (273-304); Potassium 3.8 MMOL/L (3.5-5.1)
[2021-05-03] MEDS: LEVOTHYROXINE 75 MCG TABLET PO SCH (06:16)
[2021-05-03] MEDS: POTASSIUM CHLORIDE 20 MEQ TABLET PO PRN (06:17)
[2021-05-03] MEDS: ENOXAPARIN 60 MG/0.6 ML SYRINGE SUBCUT SCH ×4 (08:10→22:31)
[2021-05-03] MEDS: INSULIN LISPRO 100 UNIT/ML SUBCUT SCH ×3 (08:11→17:21)
[2021-05-03] MEDS: NICOTINE 7 MG/24 HR PATCH TRANSDERM SCH (08:11)
[2021-05-03] MEDS: CHOLECALCIFEROL 1,000 UNIT TABLET PO SCH (08:12)
[2021-05-03] MEDS: amLODIPine 10 MG TABLET PO SCH (08:12)
[2021-05-03] MEDS: CETIRIZINE 10 MG TABLET PO SCH (08:12)
[2021-05-03] MEDS: ZINC GLUCONATE 50 MG TABLET PO SCH (08:13)
[2021-05-03] MEDS: FAMOTIDINE 20 MG TABLET PO SCH ×2 (08:13→22:35)
[2021-05-03] MEDS: ASCORBIC ACID 500 MG TABLET PO SCH ×2 (08:13→22:35)
[2021-05-03] MEDS: POTASSIUM CHLORIDE 20 MEQ TABLET PO SCH (08:17)
[2021-05-03] MEDS: guaiFENesin/CODEINE 5 ML LIQUID PO PRN (08:17)
[2021-05-03] MEDS: FLUTICASONE/SALMETEROL 100-50 DISKUS 14 DOSE INH SCH ×2 (08:45→22:30)
[2021-05-03] MEDS: INSULIN GLARGINE 100 UNIT/ML SUBCUT SCH (22:30)
[2021-05-04] MEDS: INSULIN LISPRO 100 UNIT/ML SUBCUT SCH ×5 (00:30→21:18)
[2021-05-04] MEDS: ALBUTEROL INHALER 18 GM INH SCH ×4 (01:15→21:19)
[2021-05-04] MEDS: methylPREDNISolone SOD SUC 40 MG/1 ML VIAL IV SCH ×4 (03:30→21:25)
[2021-05-04 06:08] LABS: Basophils % 0.3 % (0.0-0.8); Hemoglobin 12.7 GM/DL (12.0-16.0); Immature Granulocytes % 4.7 %; Immature Granulocytes Absolute 0.54 #; Lymphocytes # 0.3 10*3/uL (1.4-4.0); Lymphocytes % 2.6 % (21.3-54.2); Mean Corpuscular HGB Conc 32.6 GM/DL (32-36); Mean Corpuscular Volume 89.4 FL (87-102); Mean Platelet Volume 12.5 FL (9.6-12.0); Monocytes % 4.5 % (1.7-12.7); Neutrophils % 87.9 % (38.7-73.9); Platelet Count 209 T/CUMM (130-400); Red Blood Count 4.36 MC/CUMM (3.8-5.5); White Blood Count 11.5 T/CUMM (4-12)
[2021-05-04] MEDS: LEVOTHYROXINE 75 MCG TABLET PO SCH (06:22)
[2021-05-04 06:35] LABS: Hypochromasia 1+; Lymphocytes 4 % (20-55); Microcytosis 1+; Platelet Estimate Adequate; Segmented Neutrophils 94 % (50-85); Total Cells Counted 100
[2021-05-04 06:41] LABS: Calcium 9.2 MG/DL (8.5-10.1); Osmolality,Calculated 285.5 MOS/KG (273-304); Potassium 3.9 MMOL/L (3.5-5.1)
[2021-05-04] MEDS: ASCORBIC ACID 500 MG TABLET PO SCH ×2 (09:16→21:17)
[2021-05-04] MEDS: CHOLECALCIFEROL 1,000 UNIT TABLET PO SCH (09:16)
[2021-05-04] MEDS: ZINC GLUCONATE 50 MG TABLET PO SCH (09:16)
[2021-05-04] MEDS: FAMOTIDINE 20 MG TABLET PO SCH ×2 (09:17→21:17)
[2021-05-04] MEDS: CETIRIZINE 10 MG TABLET PO SCH (09:17)
[2021-05-04] MEDS: FLUTICASONE/SALMETEROL 100-50 DISKUS 14 DOSE INH SCH ×2 (09:17→21:19)
[2021-05-04] MEDS: POTASSIUM CHLORIDE 20 MEQ TABLET PO SCH (09:17)
[2021-05-04] MEDS: ENOXAPARIN 60 MG/0.6 ML SYRINGE SUBCUT SCH ×2 (09:17→21:17)
[2021-05-04] MEDS: amLODIPine 10 MG TABLET PO SCH (09:17)
[2021-05-04] MEDS: NICOTINE 7 MG/24 HR PATCH TRANSDERM SCH (11:19)
[2021-05-04] MEDS ORDERED: FUROSEMIDE 40 MG/4 ML VIAL IV ONE (14:50)
[2021-05-04] MEDS: INSULIN GLARGINE 100 UNIT/ML SUBCUT SCH (21:18)
[2021-05-04] MEDS: ACETAMINOPHEN 325 MG TABLET PO PRN (21:19)
[2021-05-05] MEDS: ALBUTEROL INHALER 18 GM INH SCH ×4 (00:35→20:55)
[2021-05-05] MEDS: methylPREDNISolone SOD SUC 40 MG/1 ML VIAL IV SCH ×4 (02:06→20:59)
[2021-05-05] MEDS: LEVOTHYROXINE 75 MCG TABLET PO SCH (06:10)
[2021-05-05 06:28] LABS: Basophils % 0.3 % (0.0-0.8); Hematocrit 40.3 VOL% (35.7-47.0); Hemoglobin 13.2 GM/DL (12.0-16.0); Immature Granulocytes % 4.7 %; Immature Granulocytes Absolute 0.44 #; Lymphocytes # 0.3 10*3/uL (1.4-4.0); Lymphocytes % 3.2 % (21.3-54.2); Mean Corpuscular HGB Conc 32.8 GM/DL (32-36); Mean Corpuscular Volume 93.1 FL (87-102); Mean Platelet Volume 12.9 FL (9.6-12.0); Monocytes % 4.5 % (1.7-12.7); Neutrophils % 87.3 % (38.7-73.9); Platelet Count 171 T/CUMM (130-400); Red Blood Count 4.33 MC/CUMM (3.8-5.5); Red Cell Distribution Width 17.5 % (9.3-17.3); White Blood Count 9.5 T/CUMM (4-12)
[2021-05-05 06:45] LABS: Calcium 7.5 MG/DL (8.5-10.1); Osmolality,Calculated 282.5 MOS/KG (273-304); Potassium 3.9 MMOL/L (3.5-5.1)
[2021-05-05 07:01] LABS: Anisocytosis 2+; Band Neutrophils 2 % (0-10); Lymphocytes 5 % (20-55); Macrocytosis 1+; Metamyelocytes 1 %; Myelocytes 1 %; Platelet Estimate Normal; Segmented Neutrophils 86 % (50-85); Total Cells Counted 100
[2021-05-05] MEDS: FLUTICASONE/SALMETEROL 100-50 DISKUS 14 DOSE INH SCH ×2 (09:13→20:55)
[2021-05-05] MEDS: guaiFENesin/CODEINE 5 ML LIQUID PO PRN (09:14)
[2021-05-05] MEDS: INSULIN LISPRO 100 UNIT/ML SUBCUT SCH ×4 (09:14→20:59)
[2021-05-05] MEDS: POTASSIUM CHLORIDE 20 MEQ TABLET PO SCH (09:15)
[2021-05-05] MEDS: ZINC GLUCONATE 50 MG TABLET PO SCH (09:15)
[2021-05-05] MEDS: amLODIPine 10 MG TABLET PO SCH (09:15)
[2021-05-05] MEDS: ENOXAPARIN 60 MG/0.6 ML SYRINGE SUBCUT SCH ×2 (09:15→20:54)
[2021-05-05] MEDS: CHOLECALCIFEROL 1,000 UNIT TABLET PO SCH (09:15)
[2021-05-05] MEDS: FAMOTIDINE 20 MG TABLET PO SCH ×2 (09:16→20:54)
[2021-05-05] MEDS: ASCORBIC ACID 500 MG TABLET PO SCH ×2 (09:16→20:54)
[2021-05-05] MEDS: NICOTINE 7 MG/24 HR PATCH TRANSDERM SCH (09:16)
[2021-05-05] MEDS: CETIRIZINE 10 MG TABLET PO SCH (09:17)
[2021-05-05] MEDS: INSULIN GLARGINE 100 UNIT/ML SUBCUT SCH ×2 (12:01→21:00)
[2021-05-05] MEDS ORDERED: FUROSEMIDE 40 MG/4 ML VIAL IV ONE (13:18)
[2021-05-06] MEDS: methylPREDNISolone SOD SUC 40 MG/1 ML VIAL IV SCH ×4 (02:23→20:04)
[2021-05-06] MEDS: ALBUTEROL INHALER 18 GM INH SCH ×4 (02:23→20:04)
[2021-05-06] MEDS: guaiFENesin/CODEINE 5 ML LIQUID PO PRN (04:50)
[2021-05-06 05:05] LABS: Basophils % 0.2 % (0.0-0.8); Hematocrit 40.7 VOL% (35.7-47.0); Hemoglobin 12.9 GM/DL (12.0-16.0); Immature Granulocytes % 4.3 %; Immature Granulocytes Absolute 0.47 #; Lymphocytes # 0.4 10*3/uL (1.4-4.0); Lymphocytes % 3.5 % (21.3-54.2); Mean Corpuscular HGB Conc 31.7 GM/DL (32-36); Mean Corpuscular Volume 91.3 FL (87-102); Mean Platelet Volume 12.5 FL (9.6-12.0); Monocytes % 5.1 % (1.7-12.7); Neutrophils % 86.9 % (38.7-73.9); Platelet Count 189 T/CUMM (130-400); Red Blood Count 4.46 MC/CUMM (3.8-5.5); White Blood Count 10.8 T/CUMM (4-12)
[2021-05-06 05:35] LABS: Band Neutrophils 1 % (0-10); Hypochromasia 1+; Lymphocytes 6 % (20-55); Segmented Neutrophils 87 % (50-85); Total Cells Counted 100
[2021-05-06 05:36] LABS: Microcytosis 1+; Platelet Estimate Adequate
[2021-05-06 05:38] LABS: Osmolality,Calculated 288.3 MOS/KG (273-304); Potassium 4.1 MMOL/L (3.5-5.1)
[2021-05-06 05:47] LABS: Ferritin 755.6 ng/ml (8-252)
[2021-05-06] MEDS: LEVOTHYROXINE 75 MCG TABLET PO SCH (06:11)
[2021-05-06] MEDS: INSULIN LISPRO 100 UNIT/ML SUBCUT SCH ×4 (08:13→20:05)
[2021-05-06] MEDS: ASCORBIC ACID 500 MG TABLET PO SCH ×2 (09:34→20:04)
[2021-05-06] MEDS: CHOLECALCIFEROL 1,000 UNIT TABLET PO SCH (09:34)
[2021-05-06] MEDS: ZINC GLUCONATE 50 MG TABLET PO SCH (09:34)
[2021-05-06] MEDS: FAMOTIDINE 20 MG TABLET PO SCH ×2 (09:34→20:05)
[2021-05-06] MEDS: CETIRIZINE 10 MG TABLET PO SCH (09:35)
[2021-05-06] MEDS: POTASSIUM CHLORIDE 20 MEQ TABLET PO SCH (09:35)
[2021-05-06] MEDS: amLODIPine 10 MG TABLET PO SCH (09:35)
[2021-05-06] MEDS: INSULIN GLARGINE 100 UNIT/ML SUBCUT SCH ×2 (09:36→20:05)
[2021-05-06] MEDS: ENOXAPARIN 60 MG/0.6 ML SYRINGE SUBCUT SCH ×2 (09:36→20:05)
[2021-05-06] MEDS: NICOTINE 7 MG/24 HR PATCH TRANSDERM SCH (09:55)
[2021-05-06] MEDS: FLUTICASONE/SALMETEROL 100-50 DISKUS 14 DOSE INH SCH ×2 (09:56→20:05)
[2021-05-07] MEDS: ALBUTEROL INHALER 18 GM INH SCH ×4 (01:32→21:48)
[2021-05-07] MEDS: methylPREDNISolone SOD SUC 40 MG/1 ML VIAL IV SCH ×4 (04:34→21:49)
[2021-05-07 05:13] LABS: Basophils % 0.3 % (0.0-0.8); Hematocrit 40.7 VOL% (35.7-47.0); Hemoglobin 12.7 GM/DL (12.0-16.0); Immature Granulocytes % 5.5 %; Immature Granulocytes Absolute 0.56 #; Lymphocytes # 0.5 10*3/uL (1.4-4.0); Lymphocytes % 4.7 % (21.3-54.2); Mean Corpuscular HGB Conc 31.2 GM/DL (32-36); Mean Corpuscular Volume 91.3 FL (87-102); Mean Platelet Volume 12.8 FL (9.6-12.0); Monocytes % 7.3 % (1.7-12.7); Neutrophils % 82.2 % (38.7-73.9); Platelet Count 181 T/CUMM (130-400); Red Blood Count 4.46 MC/CUMM (3.8-5.5); Red Cell Distribution Width 16.8 % (9.3-17.3); White Blood Count 10.2 T/CUMM (4-12)
[2021-05-07 05:33] LABS: Calcium 9.3 MG/DL (8.5-10.1); Osmolality,Calculated 278.8 MOS/KG (273-304); Potassium 4.5 MMOL/L (3.5-5.1)
[2021-05-07 05:39] LABS: Hypochromasia 1+; Lymphocytes 3 % (20-55); Microcytosis 1+; Platelet Estimate Adequate; Segmented Neutrophils 90 % (50-85); Total Cells Counted 100
[2021-05-07 05:49] LABS: Ferritin 852.2 ng/ml (8-252)
[2021-05-07] MEDS: LEVOTHYROXINE 75 MCG TABLET PO SCH (06:21)
[2021-05-07] MEDS: INSULIN LISPRO 100 UNIT/ML SUBCUT SCH ×4 (09:04→20:35)
[2021-05-07] MEDS: FLUTICASONE/SALMETEROL 100-50 DISKUS 14 DOSE INH SCH ×2 (09:05→21:48)
[2021-05-07] MEDS: INSULIN GLARGINE 100 UNIT/ML SUBCUT SCH ×2 (09:07→21:48)
[2021-05-07] MEDS: POTASSIUM CHLORIDE 20 MEQ TABLET PO SCH (09:08)
[2021-05-07] MEDS: CETIRIZINE 10 MG TABLET PO SCH (09:08)
[2021-05-07] MEDS: ASCORBIC ACID 500 MG TABLET PO SCH ×2 (09:08→21:49)
[2021-05-07] MEDS: ENOXAPARIN 60 MG/0.6 ML SYRINGE SUBCUT SCH ×2 (09:08→21:48)
[2021-05-07] MEDS: FAMOTIDINE 20 MG TABLET PO SCH ×2 (09:08→21:48)
[2021-05-07] MEDS: ZINC GLUCONATE 50 MG TABLET PO SCH (09:08)
[2021-05-07] MEDS: amLODIPine 10 MG TABLET PO SCH (09:09)
[2021-05-07] MEDS: CHOLECALCIFEROL 1,000 UNIT TABLET PO SCH (09:09)
[2021-05-07] MEDS: NICOTINE 7 MG/24 HR PATCH TRANSDERM SCH (09:10)
[2021-05-08] MEDS: ALBUTEROL INHALER 18 GM INH SCH ×4 (01:05→18:47)
[2021-05-08] MEDS: methylPREDNISolone SOD SUC 40 MG/1 ML VIAL IV SCH ×4 (03:33→20:31)
[2021-05-08 05:29] LABS: Basophils # 0.1 10*3/uL (0.0-0.2); Basophils % 0.8 % (0.0-0.8); Hematocrit 44.2 VOL% (35.7-47.0); Hemoglobin 13.8 GM/DL (12.0-16.0); Immature Granulocytes % 5.6 %; Lymphocytes # 0.3 10*3/uL (1.4-4.0); Lymphocytes % 3.1 % (21.3-54.2); Mean Corpuscular HGB Conc 31.2 GM/DL (32-36); Mean Corpuscular Volume 94.6 FL (87-102); Mean Platelet Volume 12.4 FL (9.6-12.0); Monocytes % 5.9 % (1.7-12.7); Neutrophils % 84.6 % (38.7-73.9); Platelet Count 153 T/CUMM (130-400); Red Blood Count 4.67 MC/CUMM (3.8-5.5); Red Cell Distribution Width 16.9 % (9.3-17.3); White Blood Count 10.6 T/CUMM (4-12)
[2021-05-08 05:34] LABS: Calcium 8.9 MG/DL (8.5-10.1); Osmolality,Calculated 286.1 MOS/KG (273-304); Potassium 4.2 MMOL/L (3.5-5.1)
[2021-05-08 05:47] LABS: Ferritin 907.3 ng/ml (8-252)
[2021-05-08 05:54] LABS: Band Neutrophils 1 % (0-10); Lymphocytes 1 % (20-55); Platelet Estimate Adequate; Segmented Neutrophils 96 % (50-85); Total Cells Counted 100
[2021-05-08] MEDS: LEVOTHYROXINE 75 MCG TABLET PO SCH (06:16)
[2021-05-08] MEDS: INSULIN LISPRO 100 UNIT/ML SUBCUT SCH ×4 (07:59→20:32)
[2021-05-08] MEDS: FLUTICASONE/SALMETEROL 100-50 DISKUS 14 DOSE INH SCH ×2 (09:06→20:31)
[2021-05-08] MEDS: ENOXAPARIN 60 MG/0.6 ML SYRINGE SUBCUT SCH (09:07)
[2021-05-08] MEDS: CHOLECALCIFEROL 1,000 UNIT TABLET PO SCH (09:09)
[2021-05-08] MEDS: FAMOTIDINE 20 MG TABLET PO SCH ×2 (09:09→20:31)
[2021-05-08] MEDS: INSULIN GLARGINE 100 UNIT/ML SUBCUT SCH ×2 (09:09→20:33)
[2021-05-08] MEDS: POTASSIUM CHLORIDE 20 MEQ TABLET PO SCH (09:10)
[2021-05-08] MEDS: ZINC GLUCONATE 50 MG TABLET PO SCH (09:10)
[2021-05-08] MEDS: ASCORBIC ACID 500 MG TABLET PO SCH ×2 (09:10→20:31)
[2021-05-08] MEDS: NICOTINE 7 MG/24 HR PATCH TRANSDERM SCH (09:10)
[2021-05-08] MEDS: amLODIPine 10 MG TABLET PO SCH (09:10)
[2021-05-08] MEDS: CETIRIZINE 10 MG TABLET PO SCH (09:11)
[2021-05-08] MEDS: guaiFENesin/CODEINE 5 ML LIQUID PO PRN ×2 (10:54→20:32)
[2021-05-08] MEDS ORDERED: ENOXAPARIN 60 MG/0.6 ML SYRINGE SUBCUT SCH ×2 (21:00→22:00)
[2021-05-09] MEDS: ALBUTEROL INHALER 18 GM INH SCH ×4 (02:08→18:09)
[2021-05-09] MEDS: guaiFENesin/CODEINE 5 ML LIQUID PO PRN ×3 (02:35→21:22)
[2021-05-09] MEDS: methylPREDNISolone SOD SUC 40 MG/1 ML VIAL IV SCH ×4 (04:35→21:22)
[2021-05-09 06:20] LABS: Basophils % 0.3 % (0.0-0.8); Hematocrit 40.6 VOL% (35.7-47.0); Hemoglobin 12.5 GM/DL (12.0-16.0); Immature Granulocytes % 5.6 %; Immature Granulocytes Absolute 0.66 #; Lymphocytes # 0.6 10*3/uL (1.4-4.0); Lymphocytes % 5.2 % (21.3-54.2); Mean Corpuscular HGB Conc 30.8 GM/DL (32-36); Mean Platelet Volume 12.4 FL (9.6-12.0); Monocytes % 7.3 % (1.7-12.7); Neutrophils % 81.6 % (38.7-73.9); Platelet Count 194 T/CUMM (130-400); Red Blood Count 4.56 MC/CUMM (3.8-5.5); Red Cell Distribution Width 16.4 % (9.3-17.3); White Blood Count 11.8 T/CUMM (4-12)
[2021-05-09 06:48] LABS: Lymphocytes 5 % (20-55); Segmented Neutrophils 88 % (50-85); Total Cells Counted 100
[2021-05-09 06:49] LABS: Platelet Estimate Normal
[2021-05-09 06:51] LABS: Osmolality,Calculated 280.3 MOS/KG (273-304); Potassium 4.3 MMOL/L (3.5-5.1)
[2021-05-09] MEDS: INSULIN LISPRO 100 UNIT/ML SUBCUT SCH ×4 (08:04→21:26)
[2021-05-09] MEDS ORDERED: FUROSEMIDE 40 MG/4 ML VIAL IV ONE ×2 (08:41→14:58)
[2021-05-09] MEDS: NICOTINE 7 MG/24 HR PATCH TRANSDERM SCH (09:22)
[2021-05-09] MEDS: INSULIN GLARGINE 100 UNIT/ML SUBCUT SCH ×2 (09:22→21:24)
[2021-05-09] MEDS: FLUTICASONE/SALMETEROL 100-50 DISKUS 14 DOSE INH SCH ×2 (09:28→21:22)
[2021-05-09] MEDS: amLODIPine 10 MG TABLET PO SCH (09:32)
[2021-05-09] MEDS: POTASSIUM CHLORIDE 20 MEQ TABLET PO SCH (09:32)
[2021-05-09] MEDS: LEVOTHYROXINE 75 MCG TABLET PO SCH (09:32)
[2021-05-09] MEDS: ASCORBIC ACID 500 MG TABLET PO SCH ×2 (09:33→21:23)
[2021-05-09] MEDS: ZINC GLUCONATE 50 MG TABLET PO SCH (09:33)
[2021-05-09] MEDS: CETIRIZINE 10 MG TABLET PO SCH (09:33)
[2021-05-09] MEDS: FAMOTIDINE 20 MG TABLET PO SCH ×2 (09:33→21:23)
[2021-05-09] MEDS: CHOLECALCIFEROL 1,000 UNIT TABLET PO SCH (09:33)
[2021-05-09] MEDS: ENOXAPARIN 120 MG/0.8 ML SYRINGE SUBCUT SCH ×2 (12:43→21:23)
[2021-05-09] MEDS: MORPHINE 2 MG/1 ML SYRINGE IV PRN (18:51)
[2021-05-10] MEDS: ALBUTEROL INHALER 18 GM INH SCH ×4 (01:24→18:01)
[2021-05-10] MEDS: methylPREDNISolone SOD SUC 40 MG/1 ML VIAL IV SCH ×4 (03:38→21:27)
[2021-05-10] MEDS: guaiFENesin/CODEINE 5 ML LIQUID PO PRN ×3 (05:04→21:26)
[2021-05-10 06:14] LABS: Calcium 8.7 MG/DL (8.5-10.1); Osmolality,Calculated 283.5 MOS/KG (273-304); Potassium 4.3 MMOL/L (3.5-5.1)
[2021-05-10 06:18] LABS: Alanine Aminotransferase 53 U/L (13-56); Alkaline Phosphatase 159 U/L (45-117); Aspartate Amino Transferase 28 U/L (0-37); Bilirubin,Direct < 0.100 MG/DL (0.0-0.20); Bilirubin,Indirect 0.4 MG/DL (0.0-1.0); Ferritin 917.9 ng/mL (8-252); Total Protein 6.8 G/DL (6.4-8.2)
[2021-05-10] MEDS: MORPHINE 2 MG/1 ML SYRINGE IV PRN ×4 (06:29→21:38)
[2021-05-10] MEDS: LEVOTHYROXINE 75 MCG TABLET PO SCH (06:41)
[2021-05-10 07:04] LABS: Basophils % 0.2 % (0.0-0.8); Hematocrit 39.4 VOL% (35.7-47.0); Hemoglobin 12.6 GM/DL (12.0-16.0); Immature Granulocytes % 3.2 %; Lymphocytes # 0.4 10*3/uL (1.4-4.0); Lymphocytes % 2.9 % (21.3-54.2); Mean Corpuscular Volume 90.4 FL (87-102); Mean Platelet Volume 12.4 FL (9.6-12.0); Monocytes % 3.6 % (1.7-12.7); Neutrophils % 90.1 % (38.7-73.9); Platelet Count 186 T/CUMM (130-400); Red Blood Count 4.36 MC/CUMM (3.8-5.5); Red Cell Distribution Width 16.4 % (9.3-17.3); White Blood Count 12.6 T/CUMM (4-12)
[2021-05-10] MEDS: INSULIN LISPRO 100 UNIT/ML SUBCUT SCH ×5 (07:11→21:38)
[2021-05-10 07:31] LABS: Lymphocytes 2 % (20-55); Segmented Neutrophils 95 % (50-85); Total Cells Counted 100
[2021-05-10 07:32] LABS: Hypochromasia 1+; Microcytosis 1+; Platelet Estimate Adequate
[2021-05-10] MEDS: CHOLECALCIFEROL 1,000 UNIT TABLET PO SCH (08:46)
[2021-05-10] MEDS: ZINC GLUCONATE 50 MG TABLET PO SCH (08:46)
[2021-05-10] MEDS: CETIRIZINE 10 MG TABLET PO SCH (08:46)
[2021-05-10] MEDS: POTASSIUM CHLORIDE 20 MEQ TABLET PO SCH (08:46)
[2021-05-10] MEDS: FAMOTIDINE 20 MG TABLET PO SCH ×2 (08:46→21:39)
[2021-05-10] MEDS: NICOTINE 7 MG/24 HR PATCH TRANSDERM SCH (08:47)
[2021-05-10] MEDS: ENOXAPARIN 120 MG/0.8 ML SYRINGE SUBCUT SCH ×2 (08:47→21:39)
[2021-05-10] MEDS: ASCORBIC ACID 500 MG TABLET PO SCH ×2 (08:47→21:39)
[2021-05-10] MEDS: INSULIN GLARGINE 100 UNIT/ML SUBCUT SCH ×2 (08:48→21:38)
[2021-05-10] MEDS: FLUTICASONE/SALMETEROL 100-50 DISKUS 14 DOSE INH SCH ×2 (08:49→21:38)
[2021-05-10] MEDS ORDERED: FUROSEMIDE 40 MG/4 ML VIAL IV ONE (08:52)
[2021-05-10] MEDS: amLODIPine 10 MG TABLET PO SCH (09:54)
[2021-05-11] MEDS: ALBUTEROL INHALER 18 GM INH SCH ×4 (01:44→18:00)
[2021-05-11] MEDS: methylPREDNISolone SOD SUC 40 MG/1 ML VIAL IV SCH ×4 (03:39→20:21)
[2021-05-11] MEDS: LEVOTHYROXINE 75 MCG TABLET PO SCH (05:45)
[2021-05-11 08:47] LABS: ABG Base Excess 7.9 MMOL/L (-2.5-2.5); ABG HCO3 31.3 MMOL/L (20-26); ABG Oxygen Saturation 83.4 % (95-100); ABG PCO2 43.4 MM HG (35-48); ABG PH 7.481 (7.35-7.45); ABG PO2 49.6 MM HG (80-95); ABG TCO2 28.3 MMOL/L (23-27)
[2021-05-11] MEDS: INSULIN GLARGINE 100 UNIT/ML SUBCUT SCH ×2 (09:03→20:20)
[2021-05-11] MEDS: ENOXAPARIN 120 MG/0.8 ML SYRINGE SUBCUT SCH ×2 (09:03→20:21)
[2021-05-11] MEDS: NICOTINE 7 MG/24 HR PATCH TRANSDERM SCH (09:04)
[2021-05-11] MEDS: ZINC GLUCONATE 50 MG TABLET PO SCH (09:04)
[2021-05-11] MEDS: CHOLECALCIFEROL 1,000 UNIT TABLET PO SCH (09:04)
[2021-05-11] MEDS: amLODIPine 10 MG TABLET PO SCH (09:04)
[2021-05-11] MEDS: FAMOTIDINE 20 MG TABLET PO SCH ×2 (09:04→20:21)
[2021-05-11] MEDS: POTASSIUM CHLORIDE 20 MEQ TABLET PO SCH (09:04)
[2021-05-11] MEDS: CETIRIZINE 10 MG TABLET PO SCH (09:05)
[2021-05-11] MEDS: ASCORBIC ACID 500 MG TABLET PO SCH ×2 (09:05→20:21)
[2021-05-11] MEDS: FLUTICASONE/SALMETEROL 100-50 DISKUS 14 DOSE INH SCH ×2 (09:12→20:21)
[2021-05-11] MEDS: INSULIN LISPRO 100 UNIT/ML SUBCUT SCH ×4 (09:29→20:20)
[2021-05-11] MEDS: MORPHINE 2 MG/1 ML SYRINGE IV PRN ×2 (10:15→23:00)
[2021-05-11] MEDS: guaiFENesin/CODEINE 5 ML LIQUID PO PRN (20:32)
[2021-05-12] MEDS: ALBUTEROL INHALER 18 GM INH SCH ×4 (00:14→22:16)
[2021-05-12] MEDS: methylPREDNISolone SOD SUC 40 MG/1 ML VIAL IV SCH ×4 (04:26→21:18)
[2021-05-12 05:17] LABS: Basophils % 0.2 % (0.0-0.8); Hematocrit 40.8 VOL% (35.7-47.0); Hemoglobin 12.5 GM/DL (12.0-16.0); Immature Granulocytes % 4.7 %; Immature Granulocytes Absolute 0.61 #; Lymphocytes # 0.6 10*3/uL (1.4-4.0); Lymphocytes % 4.3 % (21.3-54.2); Mean Corpuscular HGB Conc 30.6 GM/DL (32-36); Mean Corpuscular Volume 91.1 FL (87-102); Mean Platelet Volume 12.9 FL (9.6-12.0); Monocytes % 6.3 % (1.7-12.7); Neutrophils % 84.5 % (38.7-73.9); Platelet Count 178 T/CUMM (130-400); Red Blood Count 4.48 MC/CUMM (3.8-5.5); Red Cell Distribution Width 16.4 % (9.3-17.3); White Blood Count 12.9 T/CUMM (4-12)
[2021-05-12 05:40] LABS: Alanine Aminotransferase 37 U/L (13-56); Albumin 1.9 G/DL (3.4-5.0); Alkaline Phosphatase 119 U/L (45-117); Aspartate Amino Transferase 18 U/L (0-37); Bilirubin,Direct < 0.050 MG/DL (0.0-0.20); Bilirubin,Indirect 0.8 MG/DL (0.0-1.0); Blood Urea Nitrogen 17 MG/DL (7-18); Carbon Dioxide 29 MMOL/L (21-32); Estimated Glom Filtration Rate 141 ML/MIN; Ferritin 812.3 ng/mL (8-252); Glucose 112 MG/DL (74-106); Osmolality,Calculated 272.1 MOS/KG (273-304); Potassium 4.6 MMOL/L (3.5-5.1); Sodium 135 MMOL/L (136-145); Total Protein 6.5 G/DL (6.4-8.2)
[2021-05-12 05:56] LABS: Hypochromasia 1+; Lymphocytes 5 % (20-55); Microcytosis 1+; Platelet Estimate Adequate; Segmented Neutrophils 87 % (50-85); Total Cells Counted 100
[2021-05-12] MEDS: LEVOTHYROXINE 75 MCG TABLET PO SCH (06:04)
[2021-05-12] MEDS: guaiFENesin/CODEINE 5 ML LIQUID PO PRN (06:33)
[2021-05-12] MEDS: INSULIN LISPRO 100 UNIT/ML SUBCUT SCH ×4 (07:18→21:18)
[2021-05-12] MEDS: ENOXAPARIN 120 MG/0.8 ML SYRINGE SUBCUT SCH ×2 (08:08→21:18)
[2021-05-12] MEDS: FLUTICASONE/SALMETEROL 100-50 DISKUS 14 DOSE INH SCH ×2 (08:08→22:17)
[2021-05-12] MEDS: ZINC GLUCONATE 50 MG TABLET PO SCH (08:09)
[2021-05-12] MEDS: NICOTINE 7 MG/24 HR PATCH TRANSDERM SCH (08:09)
[2021-05-12] MEDS: CETIRIZINE 10 MG TABLET PO SCH (08:09)
[2021-05-12] MEDS: POTASSIUM CHLORIDE 20 MEQ TABLET PO SCH (08:09)
[2021-05-12] MEDS: amLODIPine 10 MG TABLET PO SCH (08:09)
[2021-05-12] MEDS: FAMOTIDINE 20 MG TABLET PO SCH ×2 (08:09→21:17)
[2021-05-12] MEDS: CHOLECALCIFEROL 1,000 UNIT TABLET PO SCH (08:09)
[2021-05-12] MEDS: ASCORBIC ACID 500 MG TABLET PO SCH ×2 (08:09→21:17)
[2021-05-12] MEDS: INSULIN GLARGINE 100 UNIT/ML SUBCUT SCH ×2 (08:10→21:17)
[2021-05-12] MEDS: MORPHINE 2 MG/1 ML SYRINGE IV PRN ×2 (08:48→15:09)
[2021-05-12] MEDS ORDERED: FUROSEMIDE 40 MG/4 ML VIAL IV ONE (15:26)
[2021-05-12] MEDS ORDERED: LORazepam 2 MG/1 ML VIAL IV ONE ×2 (15:41→17:05)
[2021-05-12 16:31] LABS: ABG Base Excess 6.9 MMOL/L (-2.5-2.5); ABG HCO3 30.2 MMOL/L (20-26); ABG Oxygen Saturation 78.1 % (95-100); ABG PCO2 41.4 MM HG (35-48); ABG PH 7.483 (7.35-7.45); ABG PO2 43.7 MM HG (80-95); ABG TCO2 26.8 MMOL/L (23-27)
[2021-05-12] MEDS ORDERED: ETOMIDATE 20 MG/10 ML VIAL IV ONE (16:50)
[2021-05-12] MEDS ORDERED: SUCCINYLCHOLINE 200 MG/10 ML VIAL ONE (16:51)
[2021-05-12] MEDS ORDERED: DEXMEDETOMIDINE 200 MCG in SODIUM CHLORIDE 0.9% 48 ML IV PRN (17:09)
[2021-05-12] MEDS: DEXMEDETOMIDINE 400 MCG in SODIUM CHLORIDE 0.9% 96 ML IV PRN (22:16)
[2021-05-13] MEDS: ALBUTEROL INHALER 18 GM INH SCH ×4 (01:34→18:26)
[2021-05-13] MEDS: methylPREDNISolone SOD SUC 40 MG/1 ML VIAL IV SCH ×4 (02:47→21:56)
[2021-05-13] MEDS: MORPHINE 2 MG/1 ML SYRINGE IV PRN ×4 (04:30→20:19)
[2021-05-13] MEDS: LORazepam 2 MG/1 ML VIAL IV PRN ×2 (04:30→18:26)
[2021-05-13] MEDS ORDERED: LORazepam 2 MG/1 ML VIAL ONE (04:32)
[2021-05-13 04:39] LABS: ABG Base Excess 7.2 MMOL/L (-2.5-2.5); ABG HCO3 30.5 MMOL/L (20-26); ABG Oxygen Saturation 72.9 % (95-100); ABG PCO2 43.8 MM HG (35-48); ABG TCO2 27.9 MMOL/L (23-27)
[2021-05-13 04:41] LABS: ABG PO2 40.5 MM HG (80-95)
[2021-05-13 05:54] LABS: Basophils % 0.2 % (0.0-0.8); Eosinophils % 0.1 % (0.00-10.9); Immature Granulocytes % 4.5 %; Immature Granulocytes Absolute 0.53 #; Lymphocytes # 0.5 10*3/uL (1.4-4.0); Lymphocytes % 3.8 % (21.3-54.2); Mean Corpuscular HGB Conc 30.8 GM/DL (32-36); Mean Corpuscular Volume 89.9 FL (87-102); Mean Platelet Volume 12.4 FL (9.6-12.0); Monocytes % 6.8 % (1.7-12.7); Neutrophils % 84.6 % (38.7-73.9); Platelet Count 156 T/CUMM (130-400); Red Blood Count 4.34 MC/CUMM (3.8-5.5); Red Cell Distribution Width 16.1 % (9.3-17.3); White Blood Count 11.7 T/CUMM (4-12)
[2021-05-13 06:20] LABS: Hypochromasia 1+; Lymphocytes 3 % (20-55); Microcytosis 1+; Platelet Estimate Adequate; Segmented Neutrophils 92 % (50-85); Total Cells Counted 100
[2021-05-13 06:26] LABS: Calcium 8.8 MG/DL (8.5-10.1); Ferritin 701.5 ng/mL (8-252); Osmolality,Calculated 279.5 MOS/KG (273-304); Potassium 4.4 MMOL/L (3.5-5.1)
[2021-05-13] MEDS: LEVOTHYROXINE 75 MCG TABLET PO SCH (06:48)
[2021-05-13] MEDS: INSULIN LISPRO 100 UNIT/ML SUBCUT SCH ×4 (07:20→21:42)
[2021-05-13] MEDS: FAMOTIDINE 20 MG TABLET PO SCH ×2 (09:17→21:55)
[2021-05-13] MEDS: CETIRIZINE 10 MG TABLET PO SCH (09:18)
[2021-05-13] MEDS: INSULIN GLARGINE 100 UNIT/ML SUBCUT SCH (09:20)
[2021-05-13] MEDS: ENOXAPARIN 120 MG/0.8 ML SYRINGE SUBCUT SCH ×2 (09:22→21:55)
[2021-05-13] MEDS: CHOLECALCIFEROL 1,000 UNIT TABLET PO SCH (09:29)
[2021-05-13] MEDS: FLUTICASONE/SALMETEROL 100-50 DISKUS 14 DOSE INH SCH ×2 (09:29→21:55)
[2021-05-13] MEDS: POTASSIUM CHLORIDE 20 MEQ TABLET PO SCH (09:35)
[2021-05-13] MEDS: ZINC GLUCONATE 50 MG TABLET PO SCH (09:35)
[2021-05-13] MEDS: amLODIPine 10 MG TABLET PO SCH (09:35)
[2021-05-13] MEDS: ASCORBIC ACID 500 MG TABLET PO SCH ×2 (09:35→21:54)
[2021-05-13 10:41] LABS: Bacteria,Urine Many /HPF (Few); Bilirubin,Urine Negative (Negative); Blood, Urine Small mg/dL (Negative); Glucose,Urine (UA) Negative (Negative); Ketones,Urine Negative (Negative); Mucus,Urine Many /LPF (Occasional); Nitrite,Urine Positive (Negative); Protein,Urine Negative; RBC,Urine 21 /HPF (0-4); Urine Appearance CLOUDY (Clear); Urine Color Amber (Yellow); Urine Specific Gravity 1.027 (1.001-1.035)
[2021-05-13] MEDS: DEXTROSE 50% 25 GM/50 ML VIAL IV PRN (11:26)
[2021-05-13] MEDS ORDERED: LORazepam 2 MG/1 ML VIAL IV ONE (11:46)
[2021-05-13] MEDS ORDERED: cefTRIAXone 1,000 MG in SODIUM CHLORIDE 0.9% 100 ML IV SCH (12:00)
[2021-05-13] MEDS ORDERED: FUROSEMIDE 40 MG/4 ML VIAL IV ONE (12:07)
[2021-05-13] MEDS: DEXMEDETOMIDINE 400 MCG in SODIUM CHLORIDE 0.9% 96 ML IV PRN ×2 (12:15→23:40)
[2021-05-13] MEDS: DEXTROSE 5% 1,000 ML IV SCH (12:25)
[2021-05-13] MEDS: NICOTINE 7 MG/24 HR PATCH TRANSDERM SCH (15:21)
[2021-05-14] MEDS ORDERED: ETOMIDATE 20 MG/10 ML VIAL IV ONE ×2 (00:52→10:31)
[2021-05-14] MEDS ORDERED: VECURONIUM 10 MG VIAL IV ONE (00:52)
[2021-05-14] MEDS: PIPERACILLIN/TAZOBACTAM 3,375 MG in SODIUM CHLORIDE 0.9% 100 ML IV SCH ×3 (01:34→17:29)
[2021-05-14] MEDS: ALBUTEROL INHALER 18 GM INH SCH ×4 (01:35→21:10)
[2021-05-14] MEDS: MORPHINE 2 MG/1 ML SYRINGE IV PRN (02:07)
[2021-05-14] MEDS: methylPREDNISolone SOD SUC 40 MG/1 ML VIAL IV SCH ×4 (02:55→21:11)
[2021-05-14 04:13] LABS: Basophils % 0.1 % (0.0-0.8); Hematocrit 40.8 VOL% (35.7-47.0); Hemoglobin 12.8 GM/DL (12.0-16.0); Immature Granulocytes % 2.3 %; Immature Granulocytes Absolute 0.19 #; Lymphocytes # 0.2 10*3/uL (1.4-4.0); Lymphocytes % 2.6 % (21.3-54.2); Mean Corpuscular HGB Conc 31.4 GM/DL (32-36); Mean Corpuscular Volume 89.7 FL (87-102); Mean Platelet Volume 12.9 FL (9.6-12.0); Monocytes % 4.1 % (1.7-12.7); Neutrophils % 90.9 % (38.7-73.9); Platelet Count 133 T/CUMM (130-400); Red Blood Count 4.55 MC/CUMM (3.8-5.5); Red Cell Distribution Width 15.9 % (9.3-17.3); White Blood Count 8.3 T/CUMM (4-12)
[2021-05-14 04:35] LABS: ABG Base Excess 6.1 MMOL/L (-2.5-2.5); ABG HCO3 30.1 MMOL/L (20-26); ABG Oxygen Saturation 82.9 % (95-100); ABG PCO2 41.3 MM HG (35-48); ABG PH 7.481 (7.35-7.45); ABG PO2 51.4 MM HG (80-95); ABG TCO2 31.4 MMOL/L (23-27); Allen Test Positive; Pt O2 Delivery Device BIPAP
[2021-05-14] MEDS: LORazepam 2 MG/1 ML VIAL IV PRN ×2 (05:13→08:08)
[2021-05-14 05:17] LABS: Calcium 8.9 MG/DL (8.5-10.1); Osmolality,Calculated 279.8 MOS/KG (273-304); Potassium 5.1 MMOL/L (3.5-5.1)
[2021-05-14] MEDS: DEXTROSE 5% 1,000 ML IV SCH ×3 (05:22→21:30)
[2021-05-14] MEDS: DEXMEDETOMIDINE 400 MCG in SODIUM CHLORIDE 0.9% 96 ML IV PRN ×2 (05:24→10:49)
[2021-05-14 06:54] LABS: Anisocytosis Slight; Band Neutrophils 2 % (0-10); Lymphocytes 3 % (20-55); Macrocytosis Slight; Metamyelocytes 1 %; Nucleated Red Blood Cells 1 (0-5); Platelet Estimate Adequate; Segmented Neutrophils 92 % (50-85); Total Cells Counted 100
[2021-05-14] MEDS: ENOXAPARIN 120 MG/0.8 ML SYRINGE SUBCUT SCH ×2 (09:09→21:23)
[2021-05-14] MEDS: NICOTINE 7 MG/24 HR PATCH TRANSDERM SCH (09:10)
[2021-05-14] MEDS: INSULIN LISPRO 100 UNIT/ML SUBCUT SCH ×3 (09:50→18:08)
[2021-05-14] MEDS: LEVOTHYROXINE 75 MCG TABLET PO SCH (09:50)
[2021-05-14] MEDS: FAMOTIDINE 20 MG TABLET PO SCH ×2 (09:51→21:11)
[2021-05-14] MEDS: FLUTICASONE/SALMETEROL 100-50 DISKUS 14 DOSE INH SCH ×2 (09:51→21:10)
[2021-05-14] MEDS: CHOLECALCIFEROL 1,000 UNIT TABLET PO SCH (09:51)
[2021-05-14] MEDS: ZINC GLUCONATE 50 MG TABLET PO SCH (09:51)
[2021-05-14] MEDS: ASCORBIC ACID 500 MG TABLET PO SCH ×2 (09:51→21:11)
[2021-05-14] MEDS: amLODIPine 10 MG TABLET PO SCH (09:51)
[2021-05-14] MEDS: POTASSIUM CHLORIDE 20 MEQ TABLET PO SCH (09:51)
[2021-05-14] MEDS: CETIRIZINE 10 MG TABLET PO SCH (09:51)
[2021-05-14] MEDS ORDERED: SUCCINYLCHOLINE 200 MG/10 ML VIAL ONE (10:31)
[2021-05-14] MEDS ORDERED: MIDAZOLAM 10 MG/2 ML VIAL ONE (11:30)
[2021-05-14] MEDS ORDERED: MIDAZOLAM 2 MG/2 ML VIAL IV ONE (11:31)
[2021-05-14] MEDS ORDERED: LORazepam 2 MG/1 ML VIAL IV ONE ×2 (11:36→11:40)
[2021-05-14] MEDS: MIDAZOLAM 100 MG in SODIUM CHLORIDE 0.9% 80 ML IV PRN (13:48)
[2021-05-14 16:55] LABS: ABG Base Excess 4.3 MMOL/L (-2.5-2.5); ABG HCO3 27.9 MMOL/L (20-26); ABG Oxygen Saturation 80.6 % (95-100); ABG PCO2 41.6 MM HG (35-48); ABG PH 7.447 (7.35-7.45); ABG PO2 48.9 MM HG (80-95); ABG TCO2 25.3 MMOL/L (23-27)
[2021-05-14] MEDS ORDERED: PHENYLEPHRINE DRIP 40 MG/250 ML PREMIX IV ONE (19:16)
[2021-05-14] MEDS: PHENYLEPHRINE DRIP 40 MG/250 ML PREMIX IV PRN (19:20)
[2021-05-14] MEDS ORDERED: ROCURONIUM 100 MG/10 ML VIAL IV ONE (21:14)
[2021-05-14] MEDS ORDERED: OXYMETAZOLINE 0.05% NASAL SPRAY 15 ML BOTTLE BOTH NARES PRN (21:17)
[2021-05-14] MEDS ORDERED: ROCURONIUM 500 MG in SODIUM CHLORIDE 0.9% 500 ML IV PRN (21:41)
[2021-05-14] MEDS: fentaNYL INJ 2,500 MCG in SODIUM CHLORIDE 0.9% 75 ML IV PRN (23:01)
[2021-05-15] MEDS: ALBUTEROL INHALER 18 GM INH SCH ×4 (00:28→18:45)
[2021-05-15] MEDS: INSULIN LISPRO 100 UNIT/ML SUBCUT SCH ×5 (00:28→21:42)
[2021-05-15] MEDS: PIPERACILLIN/TAZOBACTAM 3,375 MG in SODIUM CHLORIDE 0.9% 100 ML IV SCH ×2 (01:18→09:47)
[2021-05-15] MEDS: PHENYLEPHRINE DRIP 40 MG/250 ML PREMIX IV PRN ×3 (01:51→05:19)
[2021-05-15] MEDS: methylPREDNISolone SOD SUC 40 MG/1 ML VIAL IV SCH ×4 (03:34→21:42)
[2021-05-15] MEDS: LORazepam 2 MG/1 ML VIAL IV PRN (05:10)
[2021-05-15 05:19] LABS: Calcium 7.5 MG/DL (8.5-10.1); Ferritin 930.1 ng/mL (8-252); Osmolality,Calculated 288.7 MOS/KG (273-304); Potassium 4.4 MMOL/L (3.5-5.1)
[2021-05-15 05:25] LABS: Basophils # 0.1 10*3/uL (0.0-0.2); Basophils % 0.2 % (0.0-0.8); Hematocrit 34.6 VOL% (35.7-47.0); Immature Granulocytes % 3.8 %; Immature Granulocytes Absolute 0.97 #; Lymphocytes # 0.5 10*3/uL (1.4-4.0); Lymphocytes % 1.9 % (21.3-54.2); Mean Corpuscular HGB Conc 30.3 GM/DL (32-36); Mean Corpuscular Volume 94.8 FL (87-102); Mean Platelet Volume 12.8 FL (9.6-12.0); Monocytes % 5.6 % (1.7-12.7); NRBC # 0.02 10*3/uL; Neutrophils % 88.5 % (38.7-73.9); Red Blood Count 3.65 MC/CUMM (3.8-5.5); Red Cell Distribution Width 16.1 % (9.3-17.3)
[2021-05-15] MEDS: MIDAZOLAM 100 MG in SODIUM CHLORIDE 0.9% 80 ML IV PRN ×2 (05:44→20:55)
[2021-05-15] MEDS: DEXTROSE 5% 1,000 ML IV SCH ×2 (05:44→21:49)
[2021-05-15 05:54] LABS: White Blood Count 25.5 T/CUMM (4-12)
[2021-05-15 05:55] LABS: Hemoglobin 10.5 GM/DL (12.0-16.0); Platelet Count 183 T/CUMM (130-400)
[2021-05-15] MEDS: LEVOTHYROXINE 75 MCG TABLET PO SCH (06:15)
[2021-05-15 06:19] LABS: ABG HCO3 20.6 MMOL/L (20-26); ABG Oxygen Saturation 71.2 % (95-100); ABG PCO2 63.8 MM HG (35-48); ABG PO2 51.5 MM HG (80-95); ABG TCO2 23.5 MMOL/L (23-27); Allen Test Positive; Pt O2 Delivery Device Ventilator
[2021-05-15] MEDS ORDERED: SODIUM CHLORIDE 0.9% 500 ML IV ONE ×5 (06:28→20:10)
[2021-05-15] MEDS: fentaNYL INJ 2,500 MCG in SODIUM CHLORIDE 0.9% 75 ML IV PRN (06:35)
[2021-05-15 06:44] LABS: Lymphocytes 2 % (20-55); Metamyelocytes 1 %; Segmented Neutrophils 92 % (50-85); Total Cells Counted 100
[2021-05-15 06:45] LABS: Hypochromasia 1+; Platelet Estimate Normal
[2021-05-15 06:52] LABS: ABG PH 7.205 (7.35-7.45)
[2021-05-15] MEDS: PHENYLEPHRINE INJ 160 MG in SODIUM CHLORIDE 0.9% 234 ML IV PRN ×2 (07:15→13:15)
[2021-05-15 09:02] LABS: ABG Base Excess -5.9 MMOL/L (-2.5-2.5); ABG HCO3 19.2 MMOL/L (20-26); ABG Oxygen Saturation 79.1 % (95-100); ABG PH 7.217 (7.35-7.45); ABG TCO2 20.8 MMOL/L (23-27)
[2021-05-15] MEDS ORDERED: FUROSEMIDE 40 MG/4 ML VIAL IV ONE (09:33)
[2021-05-15] MEDS: ENOXAPARIN 120 MG/0.8 ML SYRINGE SUBCUT SCH (09:47)
[2021-05-15] MEDS: amLODIPine 10 MG TABLET PO SCH (09:47)
[2021-05-15] MEDS: POTASSIUM CHLORIDE 20 MEQ TABLET PO SCH (09:47)
[2021-05-15] MEDS: CHOLECALCIFEROL 1,000 UNIT TABLET PO SCH (09:48)
[2021-05-15] MEDS: CETIRIZINE 10 MG TABLET PO SCH (09:48)
[2021-05-15] MEDS: ASCORBIC ACID 500 MG TABLET PO SCH ×2 (09:48→20:55)
[2021-05-15] MEDS: FAMOTIDINE 20 MG TABLET PO SCH ×2 (09:48→20:55)
[2021-05-15] MEDS: ZINC GLUCONATE 50 MG TABLET PO SCH (09:48)
[2021-05-15] MEDS: NICOTINE 7 MG/24 HR PATCH TRANSDERM SCH (09:49)
[2021-05-15] MEDS ORDERED: SODIUM CHLORIDE 0.9% 1,000 ML IV ONE ×3 (10:11→22:21)
[2021-05-15] MEDS ORDERED: NOREPINEPHRINE 4 MG/4 ML VIAL IV ONE ×2 (10:12→10:33)
[2021-05-15] MEDS ORDERED: DOBUTamine 500 MG/250 ML PREMIX IV ONE (10:13)
[2021-05-15] MEDS ORDERED: DOBUTamine 500 MG/250 ML PREMIX IV PRN (10:20)
[2021-05-15] MEDS: NOREPINEPHRINE 8 MG in SODIUM CHLORIDE 0.9% 242 ML IV PRN ×3 (10:40→17:28)
[2021-05-15] MEDS: FLUTICASONE/SALMETEROL 100-50 DISKUS 14 DOSE INH SCH ×2 (11:25→21:48)
[2021-05-15] MEDS: fentaNYL INJ 5,000 MCG in SODIUM CHLORIDE 0.9% 150 ML IV PRN (12:39)
[2021-05-15] MEDS ORDERED: DIGOXIN 0.5 MG/2 ML AMP IV ONE (13:39)
[2021-05-15 13:58] LABS: Basophils # 0.1 10*3/uL (0.0-0.2); Basophils % 0.2 % (0.0-0.8); Hematocrit 28.8 VOL% (35.7-47.0); Hemoglobin 8.4 GM/DL (12.0-16.0); Immature Granulocytes % 4.4 %; Immature Granulocytes Absolute 1.48 #; Lymphocytes # 0.6 10*3/uL (1.4-4.0); Lymphocytes % 1.8 % (21.3-54.2); Mean Corpuscular HGB Conc 29.2 GM/DL (32-36); Mean Platelet Volume 12.4 FL (9.6-12.0); Monocytes % 5.3 % (1.7-12.7); NRBC # 0.04 10*3/uL; Neutrophils % 88.3 % (38.7-73.9); Platelet Count 158 T/CUMM (130-400); Red Blood Count 2.94 MC/CUMM (3.8-5.5); Red Cell Distribution Width 16.5 % (9.3-17.3)
[2021-05-15 14:21] LABS: Calcium 6.7 MG/DL (8.5-10.1); Osmolality,Calculated 293.5 MOS/KG (273-304); Potassium 4.8 MMOL/L (3.5-5.1)
[2021-05-15 15:16] LABS: Lymphocytes 2 % (20-55); Segmented Neutrophils 95 % (50-85); Total Cells Counted 100
[2021-05-15 15:17] LABS: Hypochromasia Slight; Macrocytosis Slight
[2021-05-15 15:18] LABS: Platelet Estimate Adequate
[2021-05-15] MEDS: metroNIDAZOLE INJ 500 MG/100 ML PREMIX IV SCH ×2 (16:07→23:59)
[2021-05-15] MEDS: CEFEPIME 1,000 MG in SODIUM CHLORIDE 0.9% 100 ML IV SCH ×2 (16:50→21:42)
[2021-05-15] MEDS ORDERED: VANCOMYCIN INJ 2,500 MG in SODIUM CHLORIDE 0.9% 500 ML IV ONE (17:00)
[2021-05-15] MEDS: NOREPINEPHRINE 16 MG in SODIUM CHLORIDE 0.9% 234 ML IV PRN ×2 (18:47→21:34)
[2021-05-15 18:59] LABS: Basophils # 0.1 10*3/uL (0.0-0.2); Basophils % 0.2 % (0.0-0.8); Hematocrit 28.1 VOL% (35.7-47.0); Hemoglobin 8.2 GM/DL (12.0-16.0); Immature Granulocytes % 4.6 %; Immature Granulocytes Absolute 1.76 #; Lymphocytes # 0.7 10*3/uL (1.4-4.0); Lymphocytes % 1.8 % (21.3-54.2); Mean Corpuscular HGB Conc 29.2 GM/DL (32-36); Mean Corpuscular Volume 98.9 FL (87-102); Mean Platelet Volume 12.5 FL (9.6-12.0); NRBC # 0.06 10*3/uL; Neutrophils % 87.4 % (38.7-73.9); Platelet Count 171 T/CUMM (130-400); Red Blood Count 2.84 MC/CUMM (3.8-5.5); Red Cell Distribution Width 16.2 % (9.3-17.3); White Blood Count 38.1 T/CUMM (4-12)
[2021-05-15 19:30] LABS: Eosinophils 2 % (0-10); Lymphocytes 1 % (20-55); Segmented Neutrophils 93 % (50-85); Total Cells Counted 100
[2021-05-15 19:31] LABS: Platelet Estimate Adequate
[2021-05-15 19:32] LABS: Hypochromasia Slight
[2021-05-15 19:33] LABS: Anisocytosis Slight; Macrocytosis Slight
[2021-05-15 20:33] LABS: ABG Base Excess -14.4 MMOL/L (-2.5-2.5); ABG Oxygen Saturation 84.1 % (95-100); ABG PCO2 62.6 MM HG (35-48); ABG PO2 72.3 MM HG (80-95); ABG TCO2 16.3 MMOL/L (23-27)
[2021-05-15 20:35] LABS: ABG PH 7.021 (7.35-7.45)
[2021-05-15 20:36] LABS: Basophils # 0.1 10*3/uL (0.0-0.2); Basophils % 0.2 % (0.0-0.8); Hematocrit 24.3 VOL% (35.7-47.0); Hemoglobin 7.2 GM/DL (12.0-16.0); Immature Granulocytes % 4.9 %; Lymphocytes # 0.8 10*3/uL (1.4-4.0); Mean Corpuscular HGB Conc 29.6 GM/DL (32-36); Mean Corpuscular Volume 98.8 FL (87-102); Mean Platelet Volume 11.8 FL (9.6-12.0); Monocytes % 6.8 % (1.7-12.7); NRBC # 0.07 10*3/uL; Neutrophils % 86.1 % (38.7-73.9); Platelet Count 142 T/CUMM (130-400); Red Blood Count 2.46 MC/CUMM (3.8-5.5); Red Cell Distribution Width 16.1 % (9.3-17.3); White Blood Count 38.4 T/CUMM (4-12)
[2021-05-15] MEDS ORDERED: SODIUM BICARBONATE 50 MEQ/50 ML VIAL IV ONE ×3 (20:38→20:41)
[2021-05-15 20:51] LABS: INR 1.3; PT Patient Result 14.6 SECS (10.5-12.0); Partial Thromboplastin Time 47.1 SECS (23.9-33.8)
[2021-05-15] MEDS: SODIUM BICARB INJ 100 MEQ in STERILE WATER INJ 1,000 ML IV SCH (20:54)
[2021-05-15 21:10] LABS: Albumin 1.3 G/DL (3.4-5.0); Bilirubin,Total 0.5 MG/DL (0.20-1.00); Calcium 6.5 MG/DL (8.5-10.1); Osmolality,Calculated 293.8 MOS/KG (273-304); Potassium 5.4 MMOL/L (3.5-5.1); Total Protein 4.2 G/DL (6.4-8.2)
[2021-05-15 21:10] LABS: Anisocytosis Slight; Lymphocytes 3 % (20-55); Macrocytosis Slight; Myelocytes 1 %; Nucleated Red Blood Cells 1 (0-5); Segmented Neutrophils 92 % (50-85); Total Cells Counted 100
[2021-05-15 21:12] LABS: Platelet Estimate Adequate
[2021-05-15 21:13] LABS: Hypochromasia Slight
[2021-05-15] MEDS: ROCURONIUM 1,000 MG in SODIUM CHLORIDE 0.9% 175 ML IV PRN (23:20)
[2021-05-16] MEDS: NOREPINEPHRINE 16 MG in SODIUM CHLORIDE 0.9% 234 ML IV PRN ×9 (00:29→23:00)
[2021-05-16] MEDS: PHENYLEPHRINE INJ 160 MG in SODIUM CHLORIDE 0.9% 234 ML IV PRN ×5 (00:29→22:43)
[2021-05-16] MEDS: INSULIN LISPRO 100 UNIT/ML SUBCUT SCH ×6 (00:29→21:02)
[2021-05-16] MEDS: ALBUTEROL INHALER 18 GM INH SCH ×4 (01:05→21:59)
[2021-05-16 02:04] LABS: ABG Base Excess -8.8 MMOL/L (-2.5-2.5); ABG HCO3 17.2 MMOL/L (20-26); ABG PO2 83.8 MM HG (80-95); ABG TCO2 21.4 MMOL/L (23-27)
[2021-05-16 02:06] LABS: ABG PH 7.078 (7.35-7.45); Basophils # 0.1 10*3/uL (0.0-0.2); Basophils % 0.2 % (0.0-0.8); Hematocrit 22.6 VOL% (35.7-47.0); Hemoglobin 6.7 GM/DL (12.0-16.0); Immature Granulocytes % 4.7 %; Immature Granulocytes Absolute 2.01 #; Lymphocytes # 0.8 10*3/uL (1.4-4.0); Lymphocytes % 1.9 % (21.3-54.2); Mean Corpuscular HGB Conc 29.6 GM/DL (32-36); Mean Corpuscular Volume 97.8 FL (87-102); Mean Platelet Volume 12.5 FL (9.6-12.0); Monocytes % 6.2 % (1.7-12.7); NRBC # 0.06 10*3/uL; Platelet Count 135 T/CUMM (130-400); Red Blood Count 2.31 MC/CUMM (3.8-5.5); Red Cell Distribution Width 16.3 % (9.3-17.3)
[2021-05-16 02:08] LABS: White Blood Count 42.6 T/CUMM (4-12)
[2021-05-16] MEDS ORDERED: SODIUM BICARBONATE 50 MEQ/50 ML VIAL IV ONE ×3 (02:11→23:38)
[2021-05-16] MEDS: fentaNYL INJ 5,000 MCG in SODIUM CHLORIDE 0.9% 150 ML IV PRN ×2 (02:35→14:25)
[2021-05-16 02:46] LABS: Calcium 6.5 MG/DL (8.5-10.1); Osmolality,Calculated 297.4 MOS/KG (273-304); Potassium 5.1 MMOL/L (3.5-5.1)
[2021-05-16 02:57] LABS: Anisocytosis 2+; Band Neutrophils 9 % (0-10); Hypersegmented Neutrophil Few; Lymphocytes 3 % (20-55); Metamyelocytes 2 %; Myelocytes 1 %; Platelet Estimate Adequate; Polychromasia Slight; Segmented Neutrophils 77 % (50-85); Smudge Cells Few; Total Cells Counted 100
[2021-05-16 02:58] LABS: Basophilic Stippling Slight; Macrocytosis 1+
[2021-05-16] MEDS: methylPREDNISolone SOD SUC 40 MG/1 ML VIAL IV SCH ×4 (03:34→22:00)
[2021-05-16] MEDS: CEFEPIME 1,000 MG in SODIUM CHLORIDE 0.9% 100 ML IV SCH ×3 (04:42→16:01)
[2021-05-16] MEDS: LEVOTHYROXINE 75 MCG TABLET PO SCH (06:11)
[2021-05-16] MEDS: MIDAZOLAM 100 MG in SODIUM CHLORIDE 0.9% 80 ML IV PRN ×2 (06:35→16:17)
[2021-05-16] MEDS: SODIUM BICARB INJ 100 MEQ in STERILE WATER INJ 1,000 ML IV SCH ×2 (07:54→20:02)
[2021-05-16] MEDS: NICOTINE 7 MG/24 HR PATCH TRANSDERM SCH (08:23)
[2021-05-16] MEDS ORDERED: SODIUM CHLORIDE 0.9% 1,000 ML IV PRN (08:32)
[2021-05-16] MEDS: metroNIDAZOLE INJ 500 MG/100 ML PREMIX IV SCH ×2 (08:58→14:39)
[2021-05-16] MEDS: amLODIPine 10 MG TABLET PO SCH (08:59)
[2021-05-16] MEDS: FLUTICASONE/SALMETEROL 100-50 DISKUS 14 DOSE INH SCH ×2 (08:59→21:05)
[2021-05-16] MEDS: POTASSIUM CHLORIDE 20 MEQ TABLET PO SCH (08:59)
[2021-05-16] MEDS: ASCORBIC ACID 500 MG TABLET PO SCH ×2 (08:59→22:00)
[2021-05-16] MEDS: CHOLECALCIFEROL 1,000 UNIT TABLET PO SCH (08:59)
[2021-05-16] MEDS: FAMOTIDINE 20 MG TABLET PO SCH (08:59)
[2021-05-16] MEDS: ZINC GLUCONATE 50 MG TABLET PO SCH (09:00)
[2021-05-16] MEDS: CETIRIZINE 10 MG TABLET PO SCH (09:00)
[2021-05-16] MEDS ORDERED: VASOPRESSIN 100 UNITS in SODIUM CHLORIDE 0.9% 95 ML IV PRN (09:06)
[2021-05-16] MEDS ORDERED: VANCOMYCIN INJ 1,750 MG in SODIUM CHLORIDE 0.9% 500 ML IV SCH (11:00)
[2021-05-16 20:56] LABS: Basophils # 0.1 10*3/uL (0.0-0.2); Basophils % 0.2 % (0.0-0.8); Hematocrit 26.8 VOL% (35.7-47.0); Hemoglobin 8.7 GM/DL (12.0-16.0); Immature Granulocytes Absolute 1.95 #; Lymphocytes # 0.9 10*3/uL (1.4-4.0); Lymphocytes % 2.4 % (21.3-54.2); Mean Corpuscular HGB Conc 32.5 GM/DL (32-36); Mean Corpuscular Volume 93.4 FL (87-102); Mean Platelet Volume 12.4 FL (9.6-12.0); Monocytes % 7.6 % (1.7-12.7); NRBC # 0.33 10*3/uL; Neutrophils % 84.8 % (38.7-73.9); Platelet Count 83 T/CUMM (130-400); Red Blood Count 2.87 MC/CUMM (3.8-5.5); Red Cell Distribution Width 15.3 % (9.3-17.3); White Blood Count 39.3 T/CUMM (4-12)
[2021-05-16] MEDS: ROCURONIUM 1,000 MG in SODIUM CHLORIDE 0.9% 175 ML IV PRN (21:30)
[2021-05-16 21:59] LABS: Band Neutrophils 2 % (0-10); Lymphocytes 1 % (20-55); Nucleated Red Blood Cells 5 (0-5); Platelet Estimate Decreased; Segmented Neutrophils 92 % (50-85); Total Cells Counted 100
[2021-05-16] MEDS: INSULIN GLARGINE 100 UNIT/ML SUBCUT SCH (21:59)
[2021-05-16] MEDS ORDERED: ALBUMIN 5% 25 GM/500 ML VIAL IV ONE (22:48)
[2021-05-16 23:04] LABS: ABG Base Excess -1.7 MMOL/L (-2.5-2.5); ABG HCO3 22.9 MMOL/L (20-26); ABG Oxygen Saturation 89.4 % (95-100); ABG PCO2 60.2 MM HG (35-48); ABG PH 7.248 (7.35-7.45); ABG PO2 64.8 MM HG (80-95); ABG TCO2 24.8 MMOL/L (23-27)
[2021-05-17] MEDS: INSULIN LISPRO 100 UNIT/ML SUBCUT SCH ×6 (00:34→20:46)
[2021-05-17] MEDS: metroNIDAZOLE INJ 500 MG/100 ML PREMIX IV SCH ×4 (00:34→23:11)
[2021-05-17] MEDS: ALBUTEROL INHALER 18 GM INH SCH ×4 (00:58→18:27)
[2021-05-17] MEDS: MIDAZOLAM 100 MG in SODIUM CHLORIDE 0.9% 80 ML IV PRN ×3 (01:59→22:43)
[2021-05-17] MEDS: fentaNYL INJ 5,000 MCG in SODIUM CHLORIDE 0.9% 150 ML IV PRN ×2 (02:00→14:07)
[2021-05-17] MEDS: NOREPINEPHRINE 16 MG in SODIUM CHLORIDE 0.9% 234 ML IV PRN ×7 (02:00→23:48)
[2021-05-17] MEDS: CEFEPIME 1,000 MG in SODIUM CHLORIDE 0.9% 100 ML IV SCH (04:00)
[2021-05-17] MEDS: methylPREDNISolone SOD SUC 40 MG/1 ML VIAL IV SCH ×4 (04:00→20:47)
[2021-05-17 04:03] LABS: ABG Base Excess -0.3 MMOL/L (-2.5-2.5); ABG Oxygen Saturation 77.6 % (95-100); ABG PCO2 64.2 MM HG (35-48); ABG PH 7.242 (7.35-7.45); ABG PO2 48.7 MM HG (80-95); ABG TCO2 26.7 MMOL/L (23-27)
[2021-05-17 04:33] LABS: Albumin 1.5 G/DL (3.4-5.0); Bilirubin,Total 0.9 MG/DL (0.20-1.00); Calcium 6.7 MG/DL (8.5-10.1); Osmolality,Calculated 300.1 MOS/KG (273-304); Total Protein 4.1 G/DL (6.4-8.2)
[2021-05-17] MEDS: LEVOTHYROXINE 75 MCG TABLET PO SCH (06:35)
[2021-05-17] MEDS: SODIUM BICARB INJ 100 MEQ in STERILE WATER INJ 1,000 ML IV SCH ×2 (08:04→20:46)
[2021-05-17] MEDS: POTASSIUM CHLORIDE 20 MEQ TABLET PO SCH (08:04)
[2021-05-17] MEDS: FLUTICASONE/SALMETEROL 100-50 DISKUS 14 DOSE INH SCH ×2 (08:05→20:46)
[2021-05-17] MEDS: FAMOTIDINE 20 MG TABLET PO SCH (08:28)
[2021-05-17] MEDS: MULTIVITAMIN (BEROCCA) TABLET PO SCH (08:28)
[2021-05-17] MEDS: CHOLECALCIFEROL 1,000 UNIT TABLET PO SCH (08:28)
[2021-05-17] MEDS: ASCORBIC ACID 500 MG TABLET PO SCH ×2 (08:28→20:47)
[2021-05-17] MEDS: ZINC GLUCONATE 50 MG TABLET PO SCH (08:28)
[2021-05-17] MEDS: CETIRIZINE 10 MG TABLET PO SCH (08:28)
[2021-05-17] MEDS: NICOTINE 7 MG/24 HR PATCH TRANSDERM SCH (08:33)
[2021-05-17 10:50] LABS: ABG Base Excess -0.9 MMOL/L (-2.5-2.5); ABG HCO3 23.5 MMOL/L (20-26); ABG Oxygen Saturation 82.6 % (95-100); ABG PCO2 60.3 MM HG (35-48); ABG PH 7.253 (7.35-7.45); ABG PO2 53.9 MM HG (80-95); ABG TCO2 25.8 MMOL/L (23-27)
[2021-05-17] MEDS ORDERED: NOREPINEPHRINE 4 MG/4 ML VIAL IV ONE (11:34)
[2021-05-17] MEDS: MENTHOL/ZINC OXIDE OINT 71 GM JAR TOP SCH ×2 (11:47→20:46)
[2021-05-17] MEDS: INSULIN GLARGINE 100 UNIT/ML SUBCUT SCH (20:46)
[2021-05-17] MEDS: ROCURONIUM 1,000 MG in SODIUM CHLORIDE 0.9% 175 ML IV PRN (21:10)
[2021-05-18] MEDS: INSULIN LISPRO 100 UNIT/ML SUBCUT SCH ×6 (00:45→21:18)
[2021-05-18] MEDS: ALBUTEROL INHALER 18 GM INH SCH ×4 (01:48→18:50)
[2021-05-18] MEDS: fentaNYL INJ 5,000 MCG in SODIUM CHLORIDE 0.9% 150 ML IV PRN ×2 (02:45→14:07)
[2021-05-18] MEDS: methylPREDNISolone SOD SUC 40 MG/1 ML VIAL IV SCH ×4 (03:43→21:19)
[2021-05-18] MEDS: CEFEPIME 1,000 MG in SODIUM CHLORIDE 0.9% 100 ML IV SCH (03:43)
[2021-05-18] MEDS: NOREPINEPHRINE 16 MG in SODIUM CHLORIDE 0.9% 234 ML IV PRN ×5 (03:43→23:14)
[2021-05-18 03:51] LABS: Basophils # 0.1 10*3/uL (0.0-0.2); Basophils % 0.2 % (0.0-0.8); Eosinophils # 0.2 10*3/uL (0.0-0.87); Eosinophils % 0.6 % (0.00-10.9); Hematocrit 19.7 VOL% (35.7-47.0); Immature Granulocytes % 6.6 %; Immature Granulocytes Absolute 1.67 #; Lymphocytes # 0.7 10*3/uL (1.4-4.0); Lymphocytes % 2.9 % (21.3-54.2); Mean Corpuscular HGB Conc 31.5 GM/DL (32-36); Mean Corpuscular Volume 95.6 FL (87-102); Mean Platelet Volume 13.3 FL (9.6-12.0); Monocytes % 8.4 % (1.7-12.7); NRBC # 1.29 10*3/uL; Neutrophils % 81.3 % (38.7-73.9); Platelet Count 65 T/CUMM (130-400); Red Blood Count 2.06 MC/CUMM (3.8-5.5); Red Cell Distribution Width 16.1 % (9.3-17.3); White Blood Count 25.2 T/CUMM (4-12)
[2021-05-18 03:58] LABS: Hemoglobin 6.2 GM/DL (12.0-16.0)
[2021-05-18 04:01] LABS: Calcium 7.4 MG/DL (8.5-10.1); Osmolality,Calculated 302.8 MOS/KG (273-304); Potassium 5.3 MMOL/L (3.5-5.1)
[2021-05-18 04:02] LABS: Uric Acid 7.2 MG/DL (2.6-6.0)
[2021-05-18 04:09] LABS: Lymphocytes 3 % (20-55); Nucleated Red Blood Cells 12 (0-5); Segmented Neutrophils 93 % (50-85); Total Cells Counted 100
[2021-05-18 04:10] LABS: Hypochromasia 2+; Microcytosis 1+; Platelet Estimate Decreased
[2021-05-18 04:12] LABS: ABG Base Excess -2.5 MMOL/L (-2.5-2.5); ABG HCO3 22.1 MMOL/L (20-26); ABG Oxygen Saturation 77.7 % (95-100); ABG PCO2 68.7 MM HG (35-48); ABG PO2 53.4 MM HG (80-95); ABG TCO2 25.6 MMOL/L (23-27)
[2021-05-18 04:39] LABS: ABG PH 7.188 (7.35-7.45)
[2021-05-18] MEDS ORDERED: SODIUM BICARBONATE 50 MEQ/50 ML VIAL IV ONE (05:10)
[2021-05-18] MEDS: LEVOTHYROXINE 75 MCG TABLET PO SCH (06:03)
[2021-05-18] MEDS: SODIUM BICARB INJ 100 MEQ in STERILE WATER INJ 1,000 ML IV SCH ×3 (06:03→15:40)
[2021-05-18] MEDS: metroNIDAZOLE INJ 500 MG/100 ML PREMIX IV SCH ×2 (06:56→15:39)
[2021-05-18] MEDS ORDERED: NOREPINEPHRINE 4 MG/4 ML VIAL IV ONE (07:20)
[2021-05-18] MEDS: MIDAZOLAM 100 MG in SODIUM CHLORIDE 0.9% 80 ML IV PRN ×2 (07:59→17:50)
[2021-05-18] MEDS: NICOTINE 7 MG/24 HR PATCH TRANSDERM SCH (08:31)
[2021-05-18] MEDS: CHOLECALCIFEROL 1,000 UNIT TABLET PO SCH (08:32)
[2021-05-18] MEDS: FAMOTIDINE 20 MG TABLET PO SCH (08:33)
[2021-05-18] MEDS: ZINC GLUCONATE 50 MG TABLET PO SCH (08:33)
[2021-05-18] MEDS: MULTIVITAMIN (BEROCCA) TABLET PO SCH (08:33)
[2021-05-18] MEDS: ASCORBIC ACID 500 MG TABLET PO SCH ×2 (08:33→21:19)
[2021-05-18] MEDS: CETIRIZINE 10 MG TABLET PO SCH (08:34)
[2021-05-18] MEDS: FLUTICASONE/SALMETEROL 100-50 DISKUS 14 DOSE INH SCH ×2 (08:35→21:20)
[2021-05-18] MEDS: MENTHOL/ZINC OXIDE OINT 71 GM JAR TOP SCH ×2 (08:35→21:21)
[2021-05-18] MEDS: POTASSIUM CHLORIDE 20 MEQ TABLET PO SCH (08:35)
[2021-05-18 11:42] LABS: Bilirubin,Urine Negative (Negative); Blood, Urine Large mg/dL (Negative); Glucose,Urine (UA) Negative (Negative); Ketones,Urine Negative (Negative); Nitrite,Urine Negative (Negative); Protein,Urine 100 MG/DL; RBC,Urine 586 /HPF (0-4); Urine Appearance CLOUDY (Clear); Urine Color Yellow (Yellow); Urine Specific Gravity 1.016 (1.001-1.035); Urine Urobilinogen < 2.0 EU/DL (0.2-1.0)
[2021-05-18 13:11] VITALS: BP 120/73
[2021-05-18] MEDS: ROCURONIUM 1,000 MG in SODIUM CHLORIDE 0.9% 175 ML IV PRN (17:51)
[2021-05-18] MEDS: MORPHINE 10 MG/5 ML UDCUP PO SCH (18:46)
[2021-05-18] MEDS: INSULIN GLARGINE 100 UNIT/ML SUBCUT SCH (21:18)
[2021-05-19] MEDS: metroNIDAZOLE INJ 500 MG/100 ML PREMIX IV SCH ×3 (00:11→14:51)
[2021-05-19] MEDS: INSULIN LISPRO 100 UNIT/ML SUBCUT SCH ×6 (00:11→20:23)
[2021-05-19] MEDS: ALBUTEROL INHALER 18 GM INH SCH ×4 (00:12→20:15)
[2021-05-19] MEDS: SODIUM BICARB INJ 100 MEQ in STERILE WATER INJ 1,000 ML IV SCH ×4 (00:12→13:08)
[2021-05-19] MEDS: MORPHINE 10 MG/5 ML UDCUP PO SCH ×4 (00:48→17:58)
[2021-05-19] MEDS: fentaNYL INJ 5,000 MCG in SODIUM CHLORIDE 0.9% 150 ML IV PRN ×2 (01:44→13:08)
[2021-05-19] MEDS: methylPREDNISolone SOD SUC 40 MG/1 ML VIAL IV SCH ×4 (02:35→20:50)
[2021-05-19] MEDS: NOREPINEPHRINE 16 MG in SODIUM CHLORIDE 0.9% 234 ML IV PRN ×5 (03:36→22:08)
[2021-05-19] MEDS: MIDAZOLAM 100 MG in SODIUM CHLORIDE 0.9% 80 ML IV PRN ×2 (04:25→15:43)
[2021-05-19] MEDS: CEFEPIME 1,000 MG in SODIUM CHLORIDE 0.9% 100 ML IV SCH (04:26)
[2021-05-19 04:42] LABS: ABG Base Excess -7.4 MMOL/L (-2.5-2.5); ABG HCO3 17.7 MMOL/L (20-26); ABG Oxygen Saturation 52.6 % (95-100); ABG TCO2 23.6 MMOL/L (23-27)
[2021-05-19 04:53] LABS: ABG PCO2 81.3 MM HG (35-48); ABG PH 7.087 (7.35-7.45)
[2021-05-19 04:54] LABS: ABG PO2 37.3 MM HG (80-95)
[2021-05-19] MEDS: LEVOTHYROXINE 75 MCG TABLET PO SCH (05:48)
[2021-05-19] MEDS: FLUTICASONE/SALMETEROL 100-50 DISKUS 14 DOSE INH SCH ×2 (08:25→20:51)
[2021-05-19] MEDS: MENTHOL/ZINC OXIDE OINT 71 GM JAR TOP SCH ×2 (08:25→20:51)
[2021-05-19] MEDS: POTASSIUM CHLORIDE 20 MEQ TABLET PO SCH (08:25)
[2021-05-19] MEDS: MULTIVITAMIN (BEROCCA) TABLET PO SCH (08:25)
[2021-05-19] MEDS: NICOTINE 7 MG/24 HR PATCH TRANSDERM SCH (08:25)
[2021-05-19] MEDS: FAMOTIDINE 20 MG TABLET PO SCH (08:26)
[2021-05-19] MEDS: ASCORBIC ACID 500 MG TABLET PO SCH ×2 (08:26→20:50)
[2021-05-19] MEDS: CHOLECALCIFEROL 1,000 UNIT TABLET PO SCH (08:26)
[2021-05-19] MEDS: ZINC GLUCONATE 50 MG TABLET PO SCH (08:27)
[2021-05-19] MEDS: CETIRIZINE 10 MG TABLET PO SCH (08:27)
[2021-05-19 14:25] LABS: Myeloperoxidase Antibody < 0.2 U
[2021-05-19] MEDS: ROCURONIUM 1,000 MG in SODIUM CHLORIDE 0.9% 175 ML IV PRN (15:44)
[2021-05-19] MEDS: INSULIN GLARGINE 100 UNIT/ML SUBCUT SCH (21:01)
[2021-05-20] MEDS: INSULIN LISPRO 100 UNIT/ML SUBCUT SCH ×2 (00:16→04:49)
[2021-05-20] MEDS: ALBUTEROL INHALER 18 GM INH SCH (00:16)
[2021-05-20] MEDS: metroNIDAZOLE INJ 500 MG/100 ML PREMIX IV SCH (00:16)
[2021-05-20] MEDS: MORPHINE 10 MG/5 ML UDCUP PO SCH (00:39)
[2021-05-20] MEDS: fentaNYL INJ 5,000 MCG in SODIUM CHLORIDE 0.9% 150 ML IV PRN (00:43)
[2021-05-20 02:51] LABS: Antinuclear Ab, S < 0.1 U
[2021-05-20] MEDS: NOREPINEPHRINE 16 MG in SODIUM CHLORIDE 0.9% 234 ML IV PRN (03:00)
[2021-05-20] MEDS: methylPREDNISolone SOD SUC 40 MG/1 ML VIAL IV SCH (03:00)
[2021-05-20] MEDS: CEFEPIME 1,000 MG in SODIUM CHLORIDE 0.9% 100 ML IV SCH (03:00)
[2021-05-20] MEDS: DEXTROSE 50% 25 GM/50 ML VIAL IV PRN (03:16)
== END 2021-05-20 03:37 | disposition expired | DRG 130 ==
LOC: N.ED 13:23 → SUATTDRO 16:28 → N.EDINP 16:28 → N.2E 17:09 → N.EDINP 17:09 → N.2E 04-23 18:06 → N.ICU 04-26 11:24 → N.2E 05-03 11:05 → N.CC 05-12 17:07
PROVIDERS: ADMIT Internal Medicine; ATTEND Internal Medicine